=== PATIENT | female | born 1945 ===

== ENCOUNTER 2017-08-22 11:12 | Inpatient (IN) | payer MEDICARE ==
[2017-08-22 12:09] LABS: RBC URINE 38 /hpf (0-3); URINE BILIRUBIN NEGATIVE (NEGATIVE); URINE BLOOD 2+ (NEGATIVE); URINE COLOR Yellow (YELLOW); URINE GLUCOSE (UA) 1+ mg/dL (Normal); URINE KETONE TRACE mg/dL (NEGATIVE); URINE LEUKOCYTE ESTERASE TRACE Leu/uL (Negative); URINE PROTEIN 2+ mg/dL (NEGATIVE); URINE UROBILINOGEN NORMAL mg/dL (0.2-1.0); WBC URINE 6 /hpf (0-5)
[2017-08-22 12:10] LABS: EOS # 0.1 K/uL (0.0-0.7); EOS % 0.2 % (0.0-4.0); HEMATOCRIT 38.8 % (34.0-47.0); LYMPH # 1.1 K/uL (1.0-4.3); LYMPH % 4.5 % (20.0-40.0); MEAN CELL VOLUME 80.6 fL (81.0-99.0); MEAN CORPUSCULAR HEMOGLOBIN 26.1 pg (27.0-31.0); MEAN CORPUSCULAR HGB CONC 32.3 g/dL (33.0-37.0); MEAN PLATELET VOLUME 8.2 fL (7.2-11.7); MONO # 1.4 K/uL (0.0-0.8); MONO % 5.6 % (0.0-10.0); NRBC % 0.1 % (0.0-2.0); PLATELET COUNT 282 K/uL (130-400); RED CELL DISTRIBUTION WIDTH 13.2 % (11.5-14.5); WHITE BLOOD COUNT 24.3 K/uL (4.8-10.8)
[2017-08-22 12:23] LABS: CHLORIDE 100 mmol/L (98-107); SODIUM 131 mmol/L (132-148)
[2017-08-22 12:24] LABS: POTASSIUM 4.3 mmol/L (3.6-5.2)
[2017-08-22 12:25] LABS: GFR AFRICAN-AMERICAN > 60
[2017-08-22 12:26] LABS: ALKALINE PHOSPHATASE 81 U/L (38-126); ALT/SGPT 33 U/L (9-52); AST/SGOT 48 U/L (14-36); BILIRUBIN,TOTAL 0.8 mg/dL (0.2-1.3); BLOOD UREA NITROGEN 19 mg/dL (7-17); CALCIUM 8.6 mg/dl (8.6-10.4); CARBON DIOXIDE 19 mmol/L (22-30); GLUCOSE,RANDOM 165 mg/dL (65-105); TOTAL PROTEIN 8.5 g/dL (6.3-8.3)
[2017-08-22 12:28] LABS: NEUTROPHIL 80 % (50-75); TOTAL CELLS COUNTED 100
--- NOTE | 2017-08-22 12:40 | US ---
HISTORY: Pain ruq COMPARISON: None. TECHNIQUE: Grayscale imaging was performed. FINDINGS: LIVER: Measures 15.2 cm in length. There is diffuse increased echogenicity of the liver parenchyma. No mass. No intrahepatic bile duct dilatation. GALLBLADDER: There are multiple gallstones. No wall thickening or pericholecystic fluid. The sonographic Nelson's sign is negative. COMMON BILE DUCT: Measures 6.0 mm. No stones. No dilatation. PANCREAS: Unremarkable as visualized. No mass. No ductal dilatation. RIGHT KIDNEY: Measures 9.5 cm in length. Normal echogenicity. No calculus, mass, or hydronephrosis. AORTA: No aneurysmal dilatation. IVC: Unremarkable. OTHER FINDINGS: None . IMPRESSION: Cholelithiasis. Diffuse increased echogenicity in the liver may reflect hepatic steatosis however parenchymal infectious/ inflammatory etiologies cannot be entirely excluded. Clinical and laboratory correlation is advised.
--- NOTE | 2017-08-22 12:50 | C.PDOC ---
History Of Present Illness 72 y/o female sent by PMD Dr. Jose Dugan for evaluation of right sided abdominal pain that started yesterday, associated with nausea and multiple episodes of vomiting. Patient denies fever, cough, diarrhea, chest pain, SOB, dysuria, or hematuria. Patient denies prior episodes of this type of pain. She admits symptoms started after she had a meal. Time Seen by Provider: 08/22/17 11:30 Chief Complaint (Nursing): Abdominal Pain History Per: Patient History/Exam Limitations: no limitations Onset/Duration Of Symptoms: Days Current Symptoms Are (Timing): Still Present Severity: Mild Location Of Pain/Discomfort: RUQ, Periumbilical (right) Radiation Of Pain To:: None Quality Of Discomfort: "Pain" Associated Symptoms: Nausea, Vomiting. denies: Fever, Chills, Diarrhea, Urinary Symptoms Recent travel outside of the [place]: No Abnormal Vaginal Bleeding: No Past Medical History Reviewed: Historical Data, Nursing Documentation, Vital Signs Vital Signs: Last Vital Signs Temp 98.4 F 08/22/17 16:45 Pulse 73 08/22/17 16:45 Resp 19 08/22/17 16:45 BP 96/61 L 08/22/17 16:45 Pulse Ox 96 08/22/17 16:45 - Medical History PMH: Diabetes, HTN, Hypercholesterolemia, Osteoporosis Family History: States: No Known Family Hx - Social History Hx Tobacco Use: No Hx Alcohol Use: No Hx Substance Use: No - Immunization History Hx Tetanus Toxoid Vaccination: No Hx Influenza Vaccination: Yes Hx Pneumococcal Vaccination: No Review Of Systems Except As Marked, All Systems Reviewed And Found Negative. Constitutional: Negative for: Fever, Chills Cardiovascular: Negative for: Chest Pain Respiratory: Negative for: Cough, Shortness of Breath Gastrointestinal: Positive for: Nausea, Vomiting, Abdominal Pain. Negative for : Diarrhea Musculoskeletal: Negative for: Back Pain Skin: Negative for: Rash Physical Exam - Physical Exam Appears: Well, Non-toxic, No Acute Distress Skin: Normal Color, Warm, Dry Oral Mucosa: Moist Chest: Symmetrical Cardiovascular: Rhythm Regular Respiratory: Normal Breath Sounds, No Rales, No Rhonchi, No Wheezing Gastrointestinal/Abdominal: Bowel Sounds, Soft, Tenderness (RUQ, right periumbilical TTP), No Guarding, No Rebound, Other (obese; (-) McBurney's) Back: Normal Inspection, No CVA Tenderness Extremity: Normal ROM Neurological/Psych: Oriented x3 ED Course And Treatment - Laboratory Results Result Diagrams: 08/22/17 11:59 08/22/17 11:59 ECG: Interpreted By Me, Viewed By Me (NSR 71 bpm, normal axis, T wave inversion aVL, V4-V5, no acute ST changes) ECG Rhythm: Sinus Rhythm ECG Interpretation: Abnormal O2 Sat by Pulse Oximetry: 98 (RA) Pulse Ox Interpretation: Normal - CT Scan/US US RUQ Other Rad Studies (CT/US): Read By Radiologist, Radiology Report Reviewed CT/US Interpretation: IMPRESSION: Cholelithiasis. Diffuse increased echogenicity in the liver may reflect hepatic steatosis however parenchymal infectious/ inflammatory etiologies cannot be entirely excluded. Clinical and laboratory correlation is advised. CT SCAN ABD/PELVIS Other Rad Studies (CT/US): Read By Radiologist, Radiology Report Reviewed CT/US Interpretation: Accession No. : [id number]. Patient Name / ID : TAMI SANCHEZ / [id number]. Exam Date : 08/22/2017 13:27:15 ( Approved ). Study Comment : Sex / Age : F / [id number]. Creator : Minda Berman. Dictator : Vladimir Reed MD. Linotype Machinist : Law Instructor : Vladimir Reed MD. Approver2 : Report Date : 08/22/2017 13:36:23. My Comment : . PROCEDURE: CT Abdomen and Pelvis without intravenous contrast. HISTORY: right periumbilical pain, leukocytosis. COMPARISON: Limited abdomen ultrasound exam 08/22/2017. TECHNIQUE: Helical CT of the abdomen and pelvis was performed without oral or intravenous contrast as per referring physician request. Contrast Dose: None. Radiation dose: Total exam DLP = 658.81 mGy-cm. This CT exam was performed using one or more of the following dose reduction techniques : Automated exposure control, adjustment of the mA and/or kV according to patient size, and/or use of iterative reconstruction technique. FINDINGS: LOWER THORAX: Limited nodular atelectasis appreciate the medial right lower lobe extending inferomedially starting below the level of the right hilum and extending medially towards the right paraspinal soft tissues. This appears more sheet like than a nodular lesion. Consider follow-up chest CT. LIVER: Unremarkable. No gross lesion or ductal dilatation. GALLBLADDER AND BILE DUCTS : Cholelithiasis seen distended gallbladder with mild pericholecystic reaction but no definite mural thickening appreciable. Findings suspicious for cholecystitis nevertheless. PANCREAS: Unremarkable. No gross lesion or ductal dilatation. SPLEEN: Unremarkable. ADRENALS: Unremarkable. No mass. KIDNEYS AND URETERS: Unremarkable. No hydronephrosis. No solid mass. VASCULATURE: Unremarkable. No aortic aneurysm. BOWEL: Unremarkable. No obstruction. No gross mural thickening. APPENDIX: Unremarkable. Normal appendix. PERITONEUM: Unremarkable. No free fluid. No free air. LYMPH NODES: Unremarkable. No enlarged lymph nodes. BLADDER: Unremarkable. REPRODUCTIVE: Unremarkable. BONES: No acute fracture. OTHER FINDINGS: None. IMPRESSION: 1. Gallbladder findings suspicious for cholecystitis however the visualize, does not appear distended. Reactive changes in the local pericholecystic fat are seen in this exam and not clearly identifiable in preliminary limited abdomen ultrasound exam. Further clinical correlation is advised. Pancreas appears unremarkable as well as common bile duct. No choledocholithiasis. 2. No additional potential acute findings however lack of intravenous and oral contrast agents limits the overall interpretation. Progress Note: Blood work, UA, RUQ US ordered and reviewed. US shows gallstones without evidence of cholecystitis. Patient has significant white count and pain in RUQ/R periumbilical area, CT scan ordered to r/o appendicitis. CT scan and clinical presentation concerning for cholecystitis - IV zosyn ordered and will admit patient. 2:35PM- Discussed patient with surgical pathologist, who will discuss patient with Dr. Baron (currently in OR ). - Physician Consult Information Physician Contacted: Tomas Bennett Outcome Of Conversation: Dr. Joey Bennett in ED, knows patient and states he is covering for Jovani Dugan - will admit patient to his service. Medical Decision Making Medical Decision Making: differential diagnoses considered: cholecystitis, cholangitis, choledolithiasis , appendicitis, colitis, renal colic, pyelonephritis, ischemic bowel Disposition - Disposition Disposition: HOSPITALIZED Disposition Time: 14:30 Condition: STABLE - Clinical Impression Clinical Impression: Leukocytosis, Cholecystitis - Violaibe Statement The provider has reviewed the documentation as recorded by the Violaibyasir Willson All medical record entries made by the Violaibyasir were at my direction and personally dictated by me. I have reviewed the chart and agree that the record accurately reflects my personal performance of the history, physical exam, medical decision making, and the department course for this patient. I have also personally directed, reviewed, and agree with the discharge instructions and disposition. Decision To Admit - Pt Status Changed To: Hospital Disposition Of: Inpatient - Admit Certification Admit to Inpatient:: After my assessment, the patient will require hospitalization for at least two midnights. This is because of the severity of symptoms shown, intensity of services needed, and/or the medical risk in this patient being treated as an outpatient. - InPatient: Physician Admission Certification:: see notes - . Bed Request Type: Regular Admitting Physician: Tomas Bennett Patient Diagnosis: Leukocytosis, Cholecystitis
--- NOTE | 2017-08-22 14:16 | CT ---
PROCEDURE: CT Abdomen and Pelvis without intravenous contrast HISTORY: right periumbilical pain, leukocytosis COMPARISON: Limited abdomen ultrasound exam 08/22/2017. TECHNIQUE: Helical CT of the abdomen and pelvis was performed without oral or intravenous contrast as per referring physician request. Contrast Dose: None Radiation dose: Total exam DLP = 658.81 mGy-cm. This CT exam was performed using one or more of the following dose reduction techniques: Automated exposure control, adjustment of the mA and/or kV according to patient size, and/or use of iterative reconstruction technique. FINDINGS: LOWER THORAX: Limited nodular atelectasis appreciate the medial right lower lobe extending inferomedially starting below the level of the right hilum and extending medially towards the right paraspinal soft tissues. This appears more sheet like than a nodular lesion. Consider follow-up chest CT. LIVER: Unremarkable. No gross lesion or ductal dilatation. GALLBLADDER AND BILE DUCTS: Cholelithiasis seen distended gallbladder with mild pericholecystic reaction but no definite mural thickening appreciable. Findings suspicious for cholecystitis nevertheless. PANCREAS: Unremarkable. No gross lesion or ductal dilatation. SPLEEN: Unremarkable. ADRENALS: Unremarkable. No mass. KIDNEYS AND URETERS: Unremarkable. No hydronephrosis. No solid mass. VASCULATURE: Unremarkable. No aortic aneurysm. BOWEL: Unremarkable. No obstruction. No gross mural thickening. APPENDIX: Unremarkable. Normal appendix. PERITONEUM: Unremarkable. No free fluid. No free air. LYMPH NODES: Unremarkable. No enlarged lymph nodes. BLADDER: Unremarkable. REPRODUCTIVE: Unremarkable. BONES: No acute fracture. OTHER FINDINGS: None. IMPRESSION: 1. Gallbladder findings suspicious for cholecystitis however the visualize, does not appear distended. Reactive changes in the local pericholecystic fat are seen in this exam and not clearly identifiable in preliminary limited abdomen ultrasound exam. Further clinical correlation is advised. Pancreas appears unremarkable as well as common bile duct. No choledocholithiasis. 2. No additional potential acute findings however lack of intravenous and oral contrast agents limits the overall interpretation.
[2017-08-22] MEDS ORDERED: Piperacill/Tazo 3.375gm in Dex 3.375 GM/50 ML BAG IVPB STA (14:21)
[2017-08-22 15:41] LABS: INR 1.1
[2017-08-22] MEDS ORDERED: HYDROmorphone 0.5 mg/0.5 ml ISec IVP PRN (17:24)
[2017-08-22] MEDS ORDERED: Piperacillin/Tazobact 3.375 GM in Sodium Chloride 100 ML IVPB SCH (18:00)
--- NOTE | 2017-08-22 18:01 | CP.PCM.CON ---
<Anthony Estes - Last Filed: 08/22/17 17:58> History of Present Illness - History of Present Illness History of Present Illness: General Surgery Consult Re: RUQ abd pain HPI: 72F sent to ED by PMD for evaluation of RUQ abd pain that began yesterday after a meal of fried chicken and deng. She has never had this pain before. Reports nausea and multiple episodes of emesis of food and yellow liquid, no blood. Denies F/C, chest pain, SOB, dysuria, or hematuria, diarrhea, melena, hematochezia. PMH: DM, HTN, HLD, osteoarthritis PSH: cataract SH: Occasional EtOH, no tobacco or street drugs All: NKDA Meds: See MAR Review of Systems - Review of Systems All systems: reviewed and no additional remarkable complaints except (as per HPI ) Past Patient History - Past Social History Smoking Status: Never Smoked - CARDIAC Hx Hypercholesterolemia: Yes Hx Hypertension: Yes - ENDOCRINE/METABOLIC Hx Endocrine Disorders: Yes Hx Diabetes Mellitus Type 2: Yes - MUSCULOSKELETAL/RHEUMATOLOGICAL Hx Osteoporosis: Yes - PSYCHIATRIC Hx Substance Use: No - SURGICAL HISTORY Hx Surgeries: No Meds Allergies/Adverse Reactions: Allergies Allergy/AdvReac Type Severity Reaction Status Date / Time cheese AdvReac Intermediate PAIN Verified 08/22/17 11:21 - Medications Medications: Current Medications Hydromorphone HCl (Dilaudid) 0.5 mg IVP Q4H PRN PRN Reason: Pain, moderate (4-7) Piperacillin Sod/Tazobactam Sod (Zosyn 3.375 Gm Iv Premix) 3.375 gm in 50 mls @ 100 mls/hr IVPB Q6 NAMAN Ondansetron HCl (Zofran Inj) 4 mg IVP Q4 PRN PRN Reason: Nausea/Vomiting Physical Exam - Constitutional Appears: Non-toxic, No Acute Distress - Head Exam Head Exam: ATRAUMATIC, NORMOCEPHALIC - Eye Exam Eye Exam: EOMI. absent: Scleral icterus - ENT Exam ENT Exam: Mucous Membranes Moist Additional comments: trachea midline - Respiratory Exam Respiratory Exam: NORMAL BREATHING PATTERN. absent: Respiratory Distress - Cardiovascular Exam Cardiovascular Exam: RRR, +S1, +S2 - GI/Abdominal Exam GI & Abdominal Exam: Guarding (in RUQ), Soft, Tenderness (in RUQ). absent: Distended, Firm, Rebound, Rigid - Rectal Exam Rectal Exam: Deferred - Extremities Exam Extremities exam: Negative for: calf tenderness, pedal edema - Back Exam Back exam: absent: CVA tenderness (L), CVA tenderness (R) - Neurological Exam Neurological exam: Alert, Oriented x3 - Psychiatric Exam Psychiatric exam: Normal Affect, Normal Mood - Skin Skin Exam: Dry, Warm Results - Vital Signs Recent Vital Signs: Last Vital Signs Temp 99.3 F 08/22/17 17:44 Pulse 74 08/22/17 17:44 Resp 20 08/22/17 17:44 BP 103/66 08/22/17 17:44 Pulse Ox 96 08/22/17 17:44 - Labs Result Diagrams: 08/22/17 11:59 08/22/17 11:59 Labs: Laboratory Results - last 24 hr 08/22/17 08/22/17 08/22/17 11:59 11:59 11:59 WBC 24.3 H RBC 4.81 Hgb 12.5 Hct 38.8 MCV 80.6 L MCH 26.1 L MCHC 32.3 L RDW 13.2 Plt Count 282 MPV 8.2 Neut % (Auto) 89.7 H Lymph % (Auto) 4.5 L [place] % (Auto) 5.6 Eos % (Auto) 0.2 Baso % (Auto) 0.0 Neut # 21.8 H Lymph # 1.1 [place] # 1.4 H Eos # 0.1 Baso # 0.0 Neutrophils % (Manual) 80 H Band Neutrophils % 9 H Lymphocytes % (Manual) 3 L Monocytes % (Manual) 8 Platelet Estimate Normal RBC Morphology Normal PT INR APTT Sodium 131 L Potassium 4.3 Chloride 100 Carbon Dioxide 19 L Anion Gap 16 BUN 19 H Creatinine 0.5 L Est GFR ( Amer) > 60 Est GFR (Non-Af Amer) > 60 Random Glucose 165 H Calcium 8.6 Total Bilirubin 0.8 AST 48 H ALT 33 Alkaline Phosphatase 81 Total Protein 8.5 H Albumin 4.3 Globulin 4.2 H Albumin/Globulin Ratio 1.0 Lipase 130 Urine Color Yellow Urine Clarity Clear Urine pH 7.0 Ur Specific [place] 1.025 Urine Protein 2+ H Urine Glucose (UA) 1+ Urine Ketones Trace Urine Blood 2+ H Urine Nitrate Negative Urine Bilirubin Negative Urine Urobilinogen Normal Ur Leukocyte Esterase Trace Urine WBC (Auto) 6 H Urine RBC (Auto) 38 H Ur Squamous Epith Cells 1 Blood Type Antibody Screen 08/22/17 08/22/17 14:53 16:31 WBC RBC Hgb Hct MCV MCH MCHC RDW Plt Count MPV Neut % (Auto) Lymph % (Auto) [place] % (Auto) Eos % (Auto) Baso % (Auto) Neut # Lymph # [place] # Eos # Baso # Neutrophils % (Manual) Band Neutrophils % Lymphocytes % (Manual) Monocytes % (Manual) Platelet Estimate RBC Morphology PT 11.8 INR 1.1 APTT 27 Sodium Potassium Chloride Carbon Dioxide Anion Gap BUN Creatinine Est GFR ( Amer) Est GFR (Non-Af Amer) Random Glucose Calcium Total Bilirubin AST ALT Alkaline Phosphatase Total Protein Albumin Globulin Albumin/Globulin Ratio Lipase Urine Color Urine Clarity Urine pH Ur Specific [place] Urine Protein Urine Glucose (UA) Urine Ketones Urine Blood Urine Nitrate Urine Bilirubin Urine Urobilinogen Ur Leukocyte Esterase Urine WBC (Auto) Urine RBC (Auto) Ur Squamous Epith Cells Blood Type A POSITIVE Antibody Screen Negative - Imaging and Cardiology CT scan - abdomen Status: Image reviewed by me, Report reviewed by me US - abdomen Status: Image reviewed by me, Report reviewed by me Assessment & Plan - Assessment and Plan (Free Text) Assessment: 72F with acute cholecystitis Plan: Needs Medicine clearance for surgery tomorrow CBC tonight OR likely in AM IV Abx IVF Zofran Pain control D/W Dr. Baron <Quentin Baron - Last Filed: 08/23/17 20:37> Meds - Medications Medications: Current Medications Hydromorphone HCl (Dilaudid) 0.5 mg IVP Q4H PRN PRN Reason: Pain, severe (8-10) Last Admin: 08/23/17 17:16 Dose: 0.5 mg Piperacillin Sod/Tazobactam Sod (Zosyn 3.375 Gm Iv Premix) 3.375 gm in 50 mls @ 100 mls/hr IVPB Q6 NAMAN Last Admin: 08/23/17 17:18 Dose: 100 mls/hr Lactated Ringer's (Lactated Ringer's) 1,000 mls @ 125 mls/hr IV .Q8H NAMAN Last Admin: 08/23/17 15:53 Dose: 125 mls/hr Insulin Aspart (Novolog) 0 unit SC ACHS [facility] PRN Reason: Protocol Last Admin: 08/23/17 17:17 Dose: 3 unit Ondansetron HCl (Zofran Inj) 4 mg IVP Q4 PRN PRN Reason: Nausea/Vomiting Oxycodone/Acetaminophen (Percocet 5/325 Mg Tab) 1 tab PO Q4H PRN PRN Reason: Pain, moderate (4-7) Stop: 08/26/17 14:23 Pantoprazole Sodium (Protonix Inj) 40 mg IVP DAILY [facility] Last Admin: 08/23/17 10:03 Dose: 40 mg Pneumococcal Polyvalent Vaccine (Pneumovax 23 Vaccine) 0.5 ml IM .ONCE ONE Stop: 08/25/17 10:01 Results - Vital Signs Recent Vital Signs: Last Vital Signs Temp 98.4 F 08/23/17 15:17 Pulse 72 08/23/17 17:08 Resp 15 08/23/17 15:17 BP 134/62 08/23/17 17:08 Pulse Ox 99 08/23/17 15:17 - Labs Result Diagrams: 08/23/17 07:38 08/23/17 07:38 Labs: Laboratory Results - last 24 hr 08/22/17 08/23/17 08/23/17 20:52 07:38 07:38 WBC 17.6 H RBC 4.29 Hgb 11.4 Hct 34.0 MCV 79.2 L MCH 26.5 L MCHC 33.4 RDW 13.1 Plt Count 259 MPV 8.4 Neut % (Auto) 82.4 H Lymph % (Auto) 9.8 L [place] % (Auto) 7.4 Eos % (Auto) 0.0 Baso % (Auto) 0.4 Neut # 14.5 H Lymph # 1.7 [place] # 1.3 H Eos # 0.0 Baso # 0.1 Neutrophils % (Manual) 83 H Band Neutrophils % 1 Lymphocytes % (Manual) 10 L Monocytes % (Manual) 6 Platelet Estimate Normal RBC Morphology Normal Sodium 135 Potassium 3.5 L Chloride 100 Carbon Dioxide 25 Anion Gap 14 BUN 23 H Creatinine 0.8 Est GFR ( Amer) > 60 Est GFR (Non-Af Amer) > 60 POC Glucose (mg/dL) 148 H Random Glucose 148 H Calcium 7.9 L Total Bilirubin 0.9 AST 20 ALT 40 Alkaline Phosphatase 64 Total Protein 7.1 Albumin 3.5 Globulin 3.6 Albumin/Globulin Ratio 1.0 08/23/17 08/23/17 08/23/17 08:39 14:23 16:36 WBC RBC Hgb Hct MCV MCH MCHC RDW Plt Count MPV Neut % (Auto) Lymph % (Auto) [place] % (Auto) Eos % (Auto) Baso % (Auto) Neut # Lymph # [place] # Eos # Baso # Neutrophils % (Manual) Band Neutrophils % Lymphocytes % (Manual) Monocytes % (Manual) Platelet Estimate RBC Morphology Sodium Potassium Chloride Carbon Dioxide Anion Gap BUN Creatinine Est GFR ( Amer) Est GFR (Non-Af Amer) POC Glucose (mg/dL) 176 H 176 H 251 H Random Glucose Calcium Total Bilirubin AST ALT Alkaline Phosphatase Total Protein Albumin Globulin Albumin/Globulin Ratio Attending/Attestation - Attestation I have personally seen and examined this patient.: Yes I have fully participated in the care of the patient.: Yes I have reviewed all pertinent clinical information: Yes Notes (Text): Pt was seen and examined at bedside Agree with above note and assessment Pt with Cholecystitis with severe leucocytosis with Abdominal pain Abdominal RUQ tenderness present Labs and radiology reviewed. NPO, IVF DVT prophylaxis C/W IV antibiotics OR for Lap Cholecystectomy present Consent Medical clearance Plan d.w pt in detail. Risk and benefit explained in detail
[2017-08-22] MEDS: Piperacill/Tazo 3.375gm in Dex 3.375 GM/50 ML BAG IVPB SCH (18:10)
--- NOTE | 2017-08-22 19:09 | RAD ---
HISTORY: pre op COMPARISON: No prior. FINDINGS: LUNGS: No active pulmonary disease. PLEURA: No significant pleural effusion identified, no pneumothorax apparent. CARDIOVASCULAR: Normal. OSSEOUS STRUCTURES: No significant abnormalities. VISUALIZED UPPER ABDOMEN: Normal. OTHER FINDINGS: None. IMPRESSION: No active disease.
[2017-08-22 20:00] LABS: HEMATOCRIT 35.2 % (34.0-47.0); MEAN CELL VOLUME 79.2 fL (81.0-99.0); MEAN CORPUSCULAR HEMOGLOBIN 26.2 pg (27.0-31.0); MEAN CORPUSCULAR HGB CONC 33.1 g/dL (33.0-37.0); MEAN PLATELET VOLUME 8.3 fL (7.2-11.7); RED CELL DISTRIBUTION WIDTH 13.4 % (11.5-14.5); WHITE BLOOD COUNT 20.7 K/uL (4.8-10.8)
[2017-08-22] MEDS ORDERED: Dextrose 5%/0.45% NS 1,000 ML IV SCH (20:00)
--- NOTE | 2017-08-22 21:08 | CP.PCM.HP ---
History of Present Illness - History of Present Illness History of Present Illness: A 72-year-old female with PMHDM, HTN, hypercholesterolemia and osteoporosis presents to the ER for evaluation of abdominal pain. C/Oabdominal pain for 1 day. Acute in onset, progressive, started after patient had a heavy fatty meal of fried chicken and cautery, in the right upper quadrant, intensity of 7/10, nonradiating, aggravated by coughing, partly relieved by pain to her medications. C/Ovomiting for 1 day. 3-4 episodes of nonbilious, nonbloody, nonprojectile vomitus containing only food particles. C/Onausea for 1 day. Bowel bladder disturbance, no C/Ofever, yellow discoloration of urine sclera, abdominal distention, chest pain. Present on Admission - Present on Admission Any Indicators Present on Admission: No Past Patient History - Past Medical History & Family History Past Medical History?: Yes - Past Social History Smoking Status: Never Smoked - CARDIAC Hx Hypercholesterolemia: Yes Hx Hypertension: Yes - HEENT Hx Cataracts: Yes (cataract Sx OU 2014) - ENDOCRINE/METABOLIC Hx Endocrine Disorders: Yes Hx Diabetes Mellitus Type 2: Yes - MUSCULOSKELETAL/RHEUMATOLOGICAL Hx Osteoporosis: Yes - PSYCHIATRIC Hx Substance Use: No - SURGICAL HISTORY Hx Surgeries: No - ANESTHESIA Hx Anesthesia: Yes Hx Anesthesia Reactions: No Hx Malignant Hyperthermia: No Has any member of the family had a problem w/ anesthesia?: No Meds Home Medications: Home Medication List Medication Instructions Recorded Confirmed Type Amoxicillin/Clavulanate [Augmentin 1 tab PO BID #10 tab 08/26/17 Rx 875 MG-125 MG] oxyCODONE/Acetaminophen [Percocet 1 tab PO Q4H PRN #15 tab 08/26/17 Rx 5/325 mg Tab] Allergies/Adverse Reactions: Allergies Allergy/AdvReac Type Severity Reaction Status Date / Time cheese AdvReac Intermediate PAIN Verified 08/22/17 11:21 Results - Vital Signs Recent Vital Signs: Last Vital Signs Temp 99.3 F 08/22/17 17:44 Pulse 74 08/22/17 17:44 Resp 20 08/22/17 17:44 BP 103/66 08/22/17 17:44 Pulse Ox 96 08/22/17 17:44 - Labs Result Diagrams: 08/26/17 07:30 08/26/17 07:30 Labs: Laboratory Results - last 24 hr 08/22/17 08/22/17 08/22/17 11:59 11:59 11:59 WBC 24.3 H RBC 4.81 Hgb 12.5 Hct 38.8 MCV 80.6 L MCH 26.1 L MCHC 32.3 L RDW 13.2 Plt Count 282 MPV 8.2 Neut % (Auto) 89.7 H Lymph % (Auto) 4.5 L [place] % (Auto) 5.6 Eos % (Auto) 0.2 Baso % (Auto) 0.0 Neut # 21.8 H Lymph # 1.1 [place] # 1.4 H Eos # 0.1 Baso # 0.0 Neutrophils % (Manual) 80 H Band Neutrophils % 9 H Lymphocytes % (Manual) 3 L Monocytes % (Manual) 8 Platelet Estimate Normal RBC Morphology Normal PT INR APTT Sodium 131 L Potassium 4.3 Chloride 100 Carbon Dioxide 19 L Anion Gap 16 BUN 19 H Creatinine 0.5 L Est GFR ( Amer) > 60 Est GFR (Non-Af Amer) > 60 POC Glucose (mg/dL) Random Glucose 165 H Calcium 8.6 Total Bilirubin 0.8 AST 48 H ALT 33 Alkaline Phosphatase 81 Total Protein 8.5 H Albumin 4.3 Globulin 4.2 H Albumin/Globulin Ratio 1.0 Lipase 130 Urine Color Yellow Urine Clarity Clear Urine pH 7.0 Ur Specific [place] 1.025 Urine Protein 2+ H Urine Glucose (UA) 1+ Urine Ketones Trace Urine Blood 2+ H Urine Nitrate Negative Urine Bilirubin Negative Urine Urobilinogen Normal Ur Leukocyte Esterase Trace Urine WBC (Auto) 6 H Urine RBC (Auto) 38 H Ur Squamous Epith Cells 1 Blood Type Antibody Screen 08/22/17 08/22/17 08/22/17 14:53 16:31 19:56 WBC 20.7 H RBC 4.44 Hgb 11.6 Hct 35.2 MCV 79.2 L MCH 26.2 L MCHC 33.1 RDW 13.4 Plt Count 264 MPV 8.3 Neut % (Auto) Lymph % (Auto) [place] % (Auto) Eos % (Auto) Baso % (Auto) Neut # Lymph # [place] # Eos # Baso # Neutrophils % (Manual) Band Neutrophils % Lymphocytes % (Manual) Monocytes % (Manual) Platelet Estimate RBC Morphology PT 11.8 INR 1.1 APTT 27 Sodium Potassium Chloride Carbon Dioxide Anion Gap BUN Creatinine Est GFR ( Amer) Est GFR (Non-Af Amer) POC Glucose (mg/dL) Random Glucose Calcium Total Bilirubin AST ALT Alkaline Phosphatase Total Protein Albumin Globulin Albumin/Globulin Ratio Lipase Urine Color Urine Clarity Urine pH Ur Specific [place] Urine Protein Urine Glucose (UA) Urine Ketones Urine Blood Urine Nitrate Urine Bilirubin Urine Urobilinogen Ur Leukocyte Esterase Urine WBC (Auto) Urine RBC (Auto) Ur Squamous Epith Cells Blood Type A POSITIVE Antibody Screen Negative 08/22/17 20:52 WBC RBC Hgb Hct MCV MCH MCHC RDW Plt Count MPV Neut % (Auto) Lymph % (Auto) [place] % (Auto) Eos % (Auto) Baso % (Auto) Neut # Lymph # [place] # Eos # Baso # Neutrophils % (Manual) Band Neutrophils % Lymphocytes % (Manual) Monocytes % (Manual) Platelet Estimate RBC Morphology PT INR APTT Sodium Potassium Chloride Carbon Dioxide Anion Gap BUN Creatinine Est GFR ( Amer) Est GFR (Non-Af Amer) POC Glucose (mg/dL) 148 H Random Glucose Calcium Total Bilirubin AST ALT Alkaline Phosphatase Total Protein Albumin Globulin Albumin/Globulin Ratio Lipase Urine Color Urine Clarity Urine pH Ur Specific [place] Urine Protein Urine Glucose (UA) Urine Ketones Urine Blood Urine Nitrate Urine Bilirubin Urine Urobilinogen Ur Leukocyte Esterase Urine WBC (Auto) Urine RBC (Auto) Ur Squamous Epith Cells Blood Type Antibody Screen
[2017-08-22] MEDS: (Novolog) Insulin Aspart, Recombinant 100 u/ml 10 ml vial SC SCH (21:32)
[2017-08-23] MEDS: Piperacill/Tazo 3.375gm in Dex 3.375 GM/50 ML BAG IVPB SCH ×4 (00:14→17:18)
[2017-08-23] MEDS: (Novolog) Insulin Aspart, Recombinant 100 u/ml 10 ml vial SC SCH ×4 (07:59→21:59)
[2017-08-23 08:01] LABS: BASO # 0.1 K/uL (0.0-0.2); BASO % 0.4 % (0.0-2.0); LYMPH # 1.7 K/uL (1.0-4.3); LYMPH % 9.8 % (20.0-40.0); MEAN CELL VOLUME 79.2 fL (81.0-99.0); MEAN CORPUSCULAR HEMOGLOBIN 26.5 pg (27.0-31.0); MEAN CORPUSCULAR HGB CONC 33.4 g/dL (33.0-37.0); MEAN PLATELET VOLUME 8.4 fL (7.2-11.7); MONO # 1.3 K/uL (0.0-0.8); MONO % 7.4 % (0.0-10.0); PLATELET COUNT 259 K/uL (130-400); RED CELL DISTRIBUTION WIDTH 13.1 % (11.5-14.5); WHITE BLOOD COUNT 17.6 K/uL (4.8-10.8)
[2017-08-23 08:05] LABS: CHLORIDE 100 mmol/L (98-107); POTASSIUM 3.5 mmol/L (3.6-5.2); SODIUM 135 mmol/L (132-148)
[2017-08-23 08:07] LABS: BILIRUBIN,TOTAL 0.9 mg/dL (0.2-1.3); GFR AFRICAN-AMERICAN > 60
[2017-08-23 08:08] LABS: ALKALINE PHOSPHATASE 64 U/L (38-126); ALT/SGPT 40 U/L (9-52); AST/SGOT 20 U/L (14-36); BLOOD UREA NITROGEN 23 mg/dL (7-17); CARBON DIOXIDE 25 mmol/L (22-30); GLUCOSE,RANDOM 148 mg/dL (65-105); TOTAL PROTEIN 7.1 g/dL (6.3-8.3)
[2017-08-23 08:09] LABS: CALCIUM 7.9 mg/dl (8.6-10.4)
[2017-08-23 09:51] LABS: NEUTROPHIL 83 % (50-75); TOTAL CELLS COUNTED 100
[2017-08-23] MEDS ORDERED: Potassium Chloride 40 MEQ in Dextrose 5%/0.45% NS 1,000 ML IV SCH (10:32)
[2017-08-23] MEDS: Bupivacaine-Epi 0.25%-1:200,000 PF Inj ONE ×2 (11:08→12:25)
[2017-08-23] MEDS ORDERED: Lactated Ringer's 1,000 ML IV ONE ×2 (11:09)
[2017-08-23] MEDS: Lidocaine 1% Inj (20ml) ONE ×2 (11:09→12:25)
[2017-08-23] MEDS ORDERED: Midazolam 2 MG/2 ML VIAL ONE (11:41)
[2017-08-23] MEDS ORDERED: Rocuronium 10 mg/ml (5 ml) ONE (11:42)
[2017-08-23] MEDS ORDERED: Succinylcholine Chloride 20 mg/ml Syr (5 ml) IV ONE (11:42)
[2017-08-23] MEDS ORDERED: Propofol 10 mg/ml Inj (20 ML) ONE (11:43)
[2017-08-23] MEDS ORDERED: Neostigmine Methylsulfate 3mg/3ml Syringe IV ONE (13:40)
--- NOTE | 2017-08-23 14:18 | PCM.SURG1 ---
Surgeon's Initial Post Op Note - Surgeon's Notes Surgeon: Dr. Baron Mica Washer Gluer: Glory PGY1 Type of Anesthesia: General Endo Anesthesia Administered By: Dr. Good Pre-Operative Diagnosis: Acute cholecystitis Operative Findings: Acute cholecystitis, perihepatic abscess, extensive adhesions (see operative report) Post-Operative Diagnosis: Acute cholecystitis with perihepatic abscess Operation Performed: Laparoscopic cholecystectomy with gallbladder aspiration, drainage of perihepatic abscess, and extensive lysis of adhesions Specimen/Specimens Removed: gallbladder, gallbladder fluid, perihepatic abscess fluid with cuture Estimated Blood Loss: EBL {In ML}: 50 Blood Products Given: N/A Drains Used: Ashish (19 fr) Post-Op Condition: Good Date of Surgery/Procedure: 08/23/17 Time of Surgery/Procedure: 11:35
[2017-08-23] MEDS ORDERED: Dexamethasone 4 mg/1 ml IVP PRN (14:19)
[2017-08-23] MEDS ORDERED: HYDROmorphone 0.5 mg/0.5 ml ISec IVP PRN (14:19)
[2017-08-23] MEDS: Lactated Ringer's 1,000 ML IV SCH ×2 (15:53→22:00)
--- NOTE | 2017-08-23 16:59 | CP.PCM.CON ---
<Ivelisse Bennett - Last Filed: 08/23/17 17:00> History of Present Illness - History of Present Illness History of Present Illness: PGY4 Initial GI Consult Tatum Rowe is a 72F sent to ED by PMD for evaluation of RUQ abd pain. She states that it began yesterday after a meal of fried chicken and deng. She has never had this pain before. Reports nausea and multiple episodes of emesis of food and yellow liquid, no blood. She states that the pain is located in the RUQ and radiated to the back. She states that her pain was at least a 8 out of 10 and describes it as achy. She notes worsening with food and no known alleviating factors. She denies any fever, chills, diaphoresis, diarrhea, melena, hematochezia. An ultrasound revealed cholelithiasis with normal CBD. CT Abd revealed possible cholecystic changes around the GB. She was started on zosyn and kept NPO for Lap Katherine today. PMH: DM, HTN, HLD, osteoarthritis PSH: cataract SH: Occasional EtOH, no tobacco or street drugs Endoscopy: Denies Family hx: denies a family hx of colon Ca ROS: 12 point ROS conducted neg other than above Past Patient History - Past Medical History & Family History Past Medical History?: Yes - Past Social History Smoking Status: Never Smoked - CARDIAC Hx Hypercholesterolemia: Yes Hx Hypertension: Yes - HEENT Hx Cataracts: Yes (cataract Sx OU 2014) - ENDOCRINE/METABOLIC Hx Endocrine Disorders: Yes Hx Diabetes Mellitus Type 2: Yes - MUSCULOSKELETAL/RHEUMATOLOGICAL Hx Osteoporosis: Yes - PSYCHIATRIC Hx Substance Use: No - SURGICAL HISTORY Hx Surgeries: No - ANESTHESIA Hx Anesthesia: Yes Hx Anesthesia Reactions: No Hx Malignant Hyperthermia: No Has any member of the family had a problem w/ anesthesia?: No Meds Allergies/Adverse Reactions: Allergies Allergy/AdvReac Type Severity Reaction Status Date / Time cheese AdvReac Intermediate PAIN Verified 08/22/17 11:21 - Medications Medications: Current Medications Hydromorphone HCl (Dilaudid) 0.5 mg IVP Q4H PRN PRN Reason: Pain, severe (8-10) Piperacillin Sod/Tazobactam Sod (Zosyn 3.375 Gm Iv Premix) 3.375 gm in 50 mls @ 100 mls/hr IVPB Q6 [facility] Last Admin: 11/11/17 11:55 Dose: 50 mls Lactated Ringer's (Lactated Ringer's) 1,000 mls @ 125 mls/hr IV .Q8H [facility] Last Admin: 08/23/17 15:53 Dose: 125 mls/hr Potassium Chloride (Potassium Chloride 20 Meq/100 Ml) 20 meq in 100 mls @ 50 mls/hr IVPB ONCE ONE Stop: 08/23/17 17:07 Last Admin: 08/23/17 15:53 Dose: 50 mls/hr Insulin Aspart (Novolog) 0 unit SC ACHS [facility] PRN Reason: Protocol Last Admin: 08/23/17 14:34 Dose: Not Given Ondansetron HCl (Zofran Inj) 4 mg IVP Q4 PRN PRN Reason: Nausea/Vomiting Oxycodone/Acetaminophen (Percocet 5/325 Mg Tab) 1 tab PO Q4H PRN PRN Reason: Pain, moderate (4-7) Stop: 08/26/17 14:23 Pantoprazole Sodium (Protonix Inj) 40 mg IVP DAILY [facility] Last Admin: 08/23/17 10:03 Dose: 40 mg Pneumococcal Polyvalent Vaccine (Pneumovax 23 Vaccine) 0.5 ml IM .ONCE ONE Stop: 08/25/17 10:01 Physical Exam - Constitutional Appears: Well, No Acute Distress - Head Exam Head Exam: ATRAUMATIC, NORMOCEPHALIC - Eye Exam Eye Exam: Normal appearance - ENT Exam ENT Exam: Mucous Membranes Moist - Respiratory Exam Respiratory Exam: Clear to Auscultation Bilateral, NORMAL BREATHING PATTERN. absent: Rales, Rhonchi, Wheezes, Respiratory Distress - Cardiovascular Exam Cardiovascular Exam: REGULAR RHYTHM, +S1, +S2 - GI/Abdominal Exam GI & Abdominal Exam: Normal Bowel Sounds, Soft, Tenderness (RUQ with + Nelson's) . absent: Distended, Guarding, Rebound, Rigid - Extremities Exam Extremities exam: Negative for: joint swelling, pedal edema - Neurological Exam Neurological exam: Alert, Oriented x3 - Psychiatric Exam Psychiatric exam: Normal Affect, Normal Mood - Skin Skin Exam: Dry, Intact, Normal Color, Warm Results - Vital Signs Recent Vital Signs: Last Vital Signs Temp 98.4 F 08/23/17 15:17 Pulse 71 08/23/17 15:17 Resp 15 08/23/17 15:17 BP 138/59 L 08/23/17 15:17 Pulse Ox 99 08/23/17 15:17 - Labs Result Diagrams: 08/23/17 07:38 08/23/17 07:38 Labs: Laboratory Results - last 24 hr 08/22/17 08/22/17 08/22/17 16:31 19:56 20:52 WBC 20.7 H RBC 4.44 Hgb 11.6 Hct 35.2 MCV 79.2 L MCH 26.2 L MCHC 33.1 RDW 13.4 Plt Count 264 MPV 8.3 Neut % (Auto) Lymph % (Auto) [place] % (Auto) Eos % (Auto) Baso % (Auto) Neut # Lymph # [place] # Eos # Baso # Neutrophils % (Manual) Band Neutrophils % Lymphocytes % (Manual) Monocytes % (Manual) Platelet Estimate RBC Morphology Sodium Potassium Chloride Carbon Dioxide Anion Gap BUN Creatinine Est GFR ( Amer) Est GFR (Non-Af Amer) POC Glucose (mg/dL) 148 H Random Glucose Calcium Total Bilirubin AST ALT Alkaline Phosphatase Total Protein Albumin Globulin Albumin/Globulin Ratio Antibody Screen Negative 08/23/17 08/23/17 08/23/17 07:38 07:38 08:39 WBC 17.6 H RBC 4.29 Hgb 11.4 Hct 34.0 MCV 79.2 L MCH 26.5 L MCHC 33.4 RDW 13.1 Plt Count 259 MPV 8.4 Neut % (Auto) 82.4 H Lymph % (Auto) 9.8 L [place] % (Auto) 7.4 Eos % (Auto) 0.0 Baso % (Auto) 0.4 Neut # 14.5 H Lymph # 1.7 [place] # 1.3 H Eos # 0.0 Baso # 0.1 Neutrophils % (Manual) 83 H Band Neutrophils % 1 Lymphocytes % (Manual) 10 L Monocytes % (Manual) 6 Platelet Estimate Normal RBC Morphology Normal Sodium 135 Potassium 3.5 L Chloride 100 Carbon Dioxide 25 Anion Gap 14 BUN 23 H Creatinine 0.8 Est GFR ( Amer) > 60 Est GFR (Non-Af Amer) > 60 POC Glucose (mg/dL) 176 H Random Glucose 148 H Calcium 7.9 L Total Bilirubin 0.9 AST 20 ALT 40 Alkaline Phosphatase 64 Total Protein 7.1 Albumin 3.5 Globulin 3.6 Albumin/Globulin Ratio 1.0 Antibody Screen 08/23/17 08/23/17 14:23 16:36 WBC RBC Hgb Hct MCV MCH MCHC RDW Plt Count MPV Neut % (Auto) Lymph % (Auto) [place] % (Auto) Eos % (Auto) Baso % (Auto) Neut # Lymph # [place] # Eos # Baso # Neutrophils % (Manual) Band Neutrophils % Lymphocytes % (Manual) Monocytes % (Manual) Platelet Estimate RBC Morphology Sodium Potassium Chloride Carbon Dioxide Anion Gap BUN Creatinine Est GFR ( Amer) Est GFR (Non-Af Amer) POC Glucose (mg/dL) 176 H 251 H Random Glucose Calcium Total Bilirubin AST ALT Alkaline Phosphatase Total Protein Albumin Globulin Albumin/Globulin Ratio Antibody Screen Assessment & Plan - Assessment and Plan (Free Text) Assessment: Tatum Rowe is a 7F w. hx of HTN, HL, Dm who presents to the ED with RUQ pain. Etiology is likely acute cholecystitis Acute Cholecystitis Abd pain likely 2/2 above Obesity Plan: -planned for lap katherine as per surgery -diet as per surgery -No evidence of CBD stone, no need for ERCP -continue abx -continue fluids -recommend oupt colonoscopy for colon ca screening -continue to monitor LFTS D/W Dr. Ramirez <Jonathan Ramirez MD - Last Filed: 08/23/17 19:07> Meds - Medications Medications: Current Medications Hydromorphone HCl (Dilaudid) 0.5 mg IVP Q4H PRN PRN Reason: Pain, severe (8-10) Last Admin: 08/23/17 17:16 Dose: 0.5 mg Piperacillin Sod/Tazobactam Sod (Zosyn 3.375 Gm Iv Premix) 3.375 gm in 50 mls @ 100 mls/hr IVPB Q6 [facility] Last Admin: 08/23/17 17:18 Dose: 100 mls/hr Lactated Ringer's (Lactated Ringer's) 1,000 mls @ 125 mls/hr IV .Q8H [facility] Last Admin: 08/23/17 15:53 Dose: 125 mls/hr Insulin Aspart (Novolog) 0 unit SC ACHS [facility] PRN Reason: Protocol Last Admin: 08/23/17 17:17 Dose: 3 unit Ondansetron HCl (Zofran Inj) 4 mg IVP Q4 PRN PRN Reason: Nausea/Vomiting Oxycodone/Acetaminophen (Percocet 5/325 Mg Tab) 1 tab PO Q4H PRN PRN Reason: Pain, moderate (4-7) Stop: 08/26/17 14:23 Pantoprazole Sodium (Protonix Inj) 40 mg IVP DAILY [facility] Last Admin: 08/23/17 10:03 Dose: 40 mg Pneumococcal Polyvalent Vaccine (Pneumovax 23 Vaccine) 0.5 ml IM .ONCE ONE Stop: 08/25/17 10:01 Results - Vital Signs Recent Vital Signs: Last Vital Signs Temp 98.4 F 08/23/17 15:17 Pulse 72 08/23/17 17:08 Resp 15 08/23/17 15:17 BP 134/62 08/23/17 17:08 Pulse Ox 99 08/23/17 15:17 - Labs Result Diagrams: 08/23/17 07:38 08/23/17 07:38 Labs: Laboratory Results - last 24 hr 08/22/17 08/22/17 08/23/17 19:56 20:52 07:38 WBC 20.7 H 17.6 H RBC 4.44 4.29 Hgb 11.6 11.4 Hct 35.2 34.0 MCV 79.2 L 79.2 L MCH 26.2 L 26.5 L MCHC 33.1 33.4 RDW 13.4 13.1 Plt Count 264 259 MPV 8.3 8.4 Neut % (Auto) 82.4 H Lymph % (Auto) 9.8 L [place] % (Auto) 7.4 Eos % (Auto) 0.0 Baso % (Auto) 0.4 Neut # 14.5 H Lymph # 1.7 [place] # 1.3 H Eos # 0.0 Baso # 0.1 Neutrophils % (Manual) 83 H Band Neutrophils % 1 Lymphocytes % (Manual) 10 L Monocytes % (Manual) 6 Platelet Estimate Normal RBC Morphology Normal Sodium Potassium Chloride Carbon Dioxide Anion Gap BUN Creatinine Est GFR ( Amer) Est GFR (Non-Af Amer) POC Glucose (mg/dL) 148 H Random Glucose Calcium Total Bilirubin AST ALT Alkaline Phosphatase Total Protein Albumin Globulin Albumin/Globulin Ratio 08/23/17 08/23/17 08/23/17 07:38 08:39 14:23 WBC RBC Hgb Hct MCV MCH MCHC RDW Plt Count MPV Neut % (Auto) Lymph % (Auto) [place] % (Auto) Eos % (Auto) Baso % (Auto) Neut # Lymph # [place] # Eos # Baso # Neutrophils % (Manual) Band Neutrophils % Lymphocytes % (Manual) Monocytes % (Manual) Platelet Estimate RBC Morphology Sodium 135 Potassium 3.5 L Chloride 100 Carbon Dioxide 25 Anion Gap 14 BUN 23 H Creatinine 0.8 Est GFR ( Amer) > 60 Est GFR (Non-Af Amer) > 60 POC Glucose (mg/dL) 176 H 176 H Random Glucose 148 H Calcium 7.9 L Total Bilirubin 0.9 AST 20 ALT 40 Alkaline Phosphatase 64 Total Protein 7.1 Albumin 3.5 Globulin 3.6 Albumin/Globulin Ratio 1.0 08/23/17 16:36 WBC RBC Hgb Hct MCV MCH MCHC RDW Plt Count MPV Neut % (Auto) Lymph % (Auto) [place] % (Auto) Eos % (Auto) Baso % (Auto) Neut # Lymph # [place] # Eos # Baso # Neutrophils % (Manual) Band Neutrophils % Lymphocytes % (Manual) Monocytes % (Manual) Platelet Estimate RBC Morphology Sodium Potassium Chloride Carbon Dioxide Anion Gap BUN Creatinine Est GFR ( Amer) Est GFR (Non-Af Amer) POC Glucose (mg/dL) 251 H Random Glucose Calcium Total Bilirubin AST ALT Alkaline Phosphatase Total Protein Albumin Globulin Albumin/Globulin Ratio Attending/Attestation - Attestation I have personally seen and examined this patient.: Yes I have fully participated in the care of the patient.: Yes I have reviewed all pertinent clinical information: Yes Notes (Text): 08/23/17 19:06 72 yr old F admitted with acute cholecystitis with leukocytosis and normal LFT and bile ducts. Patient scheduled for OR today which I agree with. Thank you for letting us participate in the care of your patient
[2017-08-23] MEDS: HYDROmorphone 0.5 mg/0.5 ml ISec IVP PRN (17:16)
--- NOTE | 2017-08-23 18:25 | CP.PCM.PN ---
Subjective - Date & Time of Evaluation Date of Evaluation: 08/23/17 Time of Evaluation: 08:20 - Subjective Subjective: clinically same Objective - Vital Signs/Intake and Output Vital Signs (last 24 hours): Temp Pulse Resp BP Pulse Ox 98.4 F 72 15 134/62 99 08/23/17 15:17 08/23/17 17:08 08/23/17 15:17 08/23/17 17:08 08/23/17 15:17 Intake and Output: 08/23/17 08/23/17 06:59 18:59 Intake Total 480 Output Total 20 Balance 480 -20 - Medications Medications: Current Medications Hydromorphone HCl (Dilaudid) 0.5 mg IVP Q4H PRN PRN Reason: Pain, severe (8-10) Last Admin: 08/23/17 17:16 Dose: 0.5 mg Piperacillin Sod/Tazobactam Sod (Zosyn 3.375 Gm Iv Premix) 3.375 gm in 50 mls @ 100 mls/hr IVPB Q6 [facility] Last Admin: 08/23/17 17:18 Dose: 100 mls/hr Lactated Ringer's (Lactated Ringer's) 1,000 mls @ 125 mls/hr IV .Q8H [facility] Last Admin: 08/23/17 15:53 Dose: 125 mls/hr Insulin Aspart (Novolog) 0 unit SC ACHS [facility] PRN Reason: Protocol Last Admin: 08/23/17 17:17 Dose: 3 unit Ondansetron HCl (Zofran Inj) 4 mg IVP Q4 PRN PRN Reason: Nausea/Vomiting Oxycodone/Acetaminophen (Percocet 5/325 Mg Tab) 1 tab PO Q4H PRN PRN Reason: Pain, moderate (4-7) Stop: 08/26/17 14:23 Pantoprazole Sodium (Protonix Inj) 40 mg IVP DAILY [facility] Last Admin: 08/23/17 10:03 Dose: 40 mg Pneumococcal Polyvalent Vaccine (Pneumovax 23 Vaccine) 0.5 ml IM .ONCE ONE Stop: 08/25/17 10:01 - Labs Labs: 08/23/17 07:38 08/23/17 07:38 PT 11.8 SECONDS (9.7-12.2) 08/22/17 14:53 INR 1.1 08/22/17 14:53 APTT 27 SECONDS (21-34) 08/22/17 14:53 - Constitutional Appears: Well - Head Exam Head Exam: ATRAUMATIC, NORMAL INSPECTION, NORMOCEPHALIC - Eye Exam Eye Exam: EOMI, Normal appearance, PERRL Pupil Exam: NORMAL ACCOMODATION, PERRL - ENT Exam ENT Exam: Mucous Membranes Moist, Normal Exam - Neck Exam Neck Exam: Full ROM, Normal Inspection. absent: Lymphadenopathy - Respiratory Exam Respiratory Exam: Decreased Breath Sounds - Cardiovascular Exam Cardiovascular Exam: REGULAR RHYTHM, +S1, +S2. absent: Murmur - GI/Abdominal Exam GI & Abdominal Exam: Soft, Normal Bowel Sounds. absent: Tenderness - Rectal Exam Rectal Exam: Deferred Assessment and Plan (1) Cholecystitis Status: Acute (2) Leukocytosis Status: Acute (3) Wrist fracture Status: Acute - Assessment and Plan (Free Text) Plan: Patient examined. EKG suggestive nonspecific T-wave abnormality. Ultrasound abdomen suggestive of cholelithiasis without cholecystitis and hepatic steatosis. CT scan abdomen pelvis suggestive of reactive changes in the pericolic fat with the possibility of cholecystitis. Chest x-ray normal. Laboratory investigation showed raised total WBC counts. Significant neutrophilia. Raised AST. Laparoscopic cholecystectomy with gallbladder aspiration, drainage of the perihepatic abscess and extensive lysis of the adhesions done under general anesthesia. Continue piperacillin tazobactam. Hydrate the patient with Ringer lactate. Continue insulin. Continue supportive care.
[2017-08-24] MEDS: Piperacill/Tazo 3.375gm in Dex 3.375 GM/50 ML BAG IVPB SCH ×4 (00:04→18:50)
[2017-08-24 01:00] VITALS: RESP 20
[2017-08-24] MEDS: HYDROmorphone 0.5 mg/0.5 ml ISec IVP PRN (02:54)
--- NOTE | 2017-08-24 02:56 | OP ---
PROCEDURE DATE: 08/23/2017 PREOPERATIVE DIAGNOSES: 1. Acute cholecystitis and cholelithiasis. 2. Severe leukocytosis of 25,000 white count. 3. Severe abdominal pain. POSTOPERATIVE DIAGNOSES: 1. Acute phlegmonous cholecystitis. 2. Perihepatic and pericholecystic abscess. 3. Extensive post infectious adhesions due to phlegmonous changes. 4. Hydrops of the gallbladder. PROCEDURES: 1. Laparoscopic cholecystectomy. 2. Laparoscopic drainage of perihepatic and pericholecystic abscess. 3. Laparoscopic extensive lysis of adhesions. 4. Laparoscopic drainage of hydrops of the gallbladder. SURGEON: Quentin Baron MD. CARD PUNCHING MACHINE OPERATOR: Richy PGY1 resident. TYPE OF ANESTHESIA: General endotracheal tube anesthesia. ESTIMATED BLOOD LOSS: Around 50 mL. DRAINS: A 19-[place] Ashish drain was placed. COMPLICATIONS: None. INTRAOPERATIVE FINDINGS: The patient had [id number] phlegmonous cholecystitis with a large stone blocking the gallbladder and with hydrops of the gallbladder and the patient also had perihepatic abscess as well as pericholecystic abscess and the patient had extensive post infectious adhesions and it took approximately 60 to 80 minutes extra for the routine procedure. DESCRIPTION OF PROCEDURE: On intraoperative steps, this 72-year-old female was diagnosed with acute cholecystitis with severe leukocytosis and severe abdominal pain and the patient was consented for laparoscopic cholecystectomy possible open. The patient was brought to the OR, placed supine on the operating table. After induction of the anesthesia, the abdomen was prepped and draped in usual sterile fashion. The supraumbilical transverse incision was made. After incising the skin and subcutaneous tissue, a Ruth port was placed and Pneumo was created. The 12-mm port was placed in the midline below costal margin. Another two 5 mm ports were placed in the midclavicular and anterior axillary line after the grasper and dissector was introduced and the gallbladder was identified in the large phlegmonous mass and there was a perihepatic pus as well as pericholecystic pus and abscess was present, so first abscess cavity was drained. Suction irrigation was done. Now the phlegmonous mass was dissected. The gallbladder was dissected free from the phlegmonous mass and blunt and sharp dissection was done. The gallbladder was aspirated and there was a clear fluid identified due to the hydrops of the gallbladder and fluid was sent to the table for the pathology. The pus was also sent for the culture and sensitivity and now the gallbladder was retracted cranially. The dissection of the gallbladder from the duodenum and extensive lysis of adhesion was done to identify the infundibulum and the Calot's triangle. The cystic duct and cystic artery were identified and clipped at 3 places and cut in between 2 clips near by gallbladder. The gallbladder was dissected free from the gallbladder fossa, taken in EndoCatch bag, taken out through the umbilical port site and sent to the table for the pathology. There was proper hemostasis in each and every part of the procedure. The suction irrigation of the gallbladder fossa as well as perihepatic area was done and a 19-[place]izen [place] Ashish drain was placed and the gallbladder was taken in EndoCatch bag, taken out through the umbilical port site and sent to the table for the pathology. There was a proper hemostasis in each and every part of the procedure. The umbilical incision was closed in two layers, the fascia with 0 Vicryl interrupted sutures multiple and skin with 4-0 Monocryl and dry sterile dressing was applied. The patient tolerated the procedure well. Count of the instrument and gauze was correct. There were no apparent complications. The patient was extubated in the OR and sent to the post-anesthesia care unit in stable condition. Quentin Baron MD MTDEstelle
[2017-08-24] MEDS: Lactated Ringer's 1,000 ML IV SCH (06:20)
[2017-08-24] MEDS: (Novolog) Insulin Aspart, Recombinant 100 u/ml 10 ml vial SC SCH ×4 (07:43→21:45)
--- NOTE | 2017-08-24 08:28 | CP.PCM.PN ---
<Richy Holder - Last Filed: 08/24/17 08:26> Subjective - Date & Time of Evaluation Date of Evaluation: 08/24/17 Time of Evaluation: 07:00 - Subjective Subjective: General Surgery Note for Dr. Baron Patient seen and examined at bedside. Patient states she had two episodes of nausea/vomiting overnight. She is complaining of abdominal pain at incision sites. Patient is tolerating some liquids. Patient denies flatus or BM. Denies fever/chills, chest pain, SOB, palpitations, diarrhea. Objective - Vital Signs/Intake and Output Vital Signs (last 24 hours): Temp Pulse Resp BP Pulse Ox 98.6 F 74 20 127/68 95 08/24/17 08:21 08/24/17 08:21 08/24/17 08:21 08/24/17 08:21 08/24/17 08:21 Intake and Output: 08/24/17 08/24/17 06:59 18:59 Intake Total 1895 Output Total 370 Balance 1525 - Medications Medications: Current Medications Hydromorphone HCl (Dilaudid) 0.5 mg IVP Q4H PRN PRN Reason: Pain, severe (8-10) Last Admin: 08/24/17 02:54 Dose: 0.5 mg Piperacillin Sod/Tazobactam Sod (Zosyn 3.375 Gm Iv Premix) 3.375 gm in 50 mls @ 100 mls/hr IVPB Q6 [facility] Last Admin: 08/24/17 05:05 Dose: 100 mls/hr Lactated Ringer's (Lactated Ringer's) 1,000 mls @ 125 mls/hr IV .Q8H [facility] Last Admin: 08/24/17 06:20 Dose: Not Given Insulin Aspart (Novolog) 0 unit SC ACHS [facility] PRN Reason: Protocol Last Admin: 08/24/17 07:43 Dose: Not Given Ondansetron HCl (Zofran Inj) 4 mg IVP Q4 PRN PRN Reason: Nausea/Vomiting Last Admin: 08/24/17 02:59 Dose: 4 mg Oxycodone/Acetaminophen (Percocet 5/325 Mg Tab) 1 tab PO Q4H PRN PRN Reason: Pain, moderate (4-7) Stop: 08/26/17 14:23 Pantoprazole Sodium (Protonix Inj) 40 mg IVP DAILY [facility] Last Admin: 08/23/17 10:03 Dose: 40 mg Pneumococcal Polyvalent Vaccine (Pneumovax 23 Vaccine) 0.5 ml IM .ONCE ONE Stop: 08/25/17 10:01 - Labs Labs: 08/23/17 07:38 08/23/17 07:38 PT 11.8 SECONDS (9.7-12.2) 08/22/17 14:53 INR 1.1 08/22/17 14:53 APTT 27 SECONDS (21-34) 08/22/17 14:53 - Constitutional Appears: No Acute Distress - Head Exam Head Exam: ATRAUMATIC, NORMOCEPHALIC - Eye Exam Eye Exam: Normal appearance - ENT Exam ENT Exam: Mucous Membranes Moist - Respiratory Exam Respiratory Exam: NORMAL BREATHING PATTERN - Cardiovascular Exam Cardiovascular Exam: REGULAR RHYTHM - GI/Abdominal Exam GI & Abdominal Exam: Soft, Tenderness (incision sites and RUQ), Normal Bowel Sounds. absent: Distended, Firm, Guarding, Rigid, Rebound Additional comments: incision site dressing clean dry and intact - Extremities Exam Extremities Exam: Normal Capillary Refill - Neurological Exam Neurological Exam: Alert, Awake, Oriented x3 - Psychiatric Exam Psychiatric exam: Normal Affect, Normal Mood - Skin Skin Exam: Dry, Intact, Normal Color, Warm Assessment and Plan - Assessment and Plan (Free Text) Plan: 72 F s/p laparoscopic cholecystectomy, gallbladder aspiration, perihepatic abscess drainage, and extensive JOCE POD#1 -CLD, ADAT -Change LR to D51/2NS with 20 KCL -Analgesic/Anti-emetics PRN -Encourage IS, OOB, and Ambulation -Will discuss with Dr. Tod Holder PGY1 <Quentin Baron - Last Filed: 08/27/17 18:36> Objective - Vital Signs/Intake and Output Vital Signs (last 24 hours): Temp Pulse Resp BP Pulse Ox 98.1 F 77 20 139/90 96 08/26/17 08:00 08/26/17 08:00 08/26/17 08:00 08/26/17 08:00 08/26/17 08:00 - Labs Labs: 08/26/17 07:30 08/26/17 07:30 PT 11.8 SECONDS (9.7-12.2) 08/22/17 14:53 INR 1.1 08/22/17 14:53 APTT 27 SECONDS (21-34) 08/22/17 14:53 Attending/Attestation - Attestation I have fully participated in the care of the patient.: Yes I have reviewed all pertinent clinical information, including history, physical exam and plan: Yes Notes (Text): Pt was seen and examined at bedside Agree with above note and assessment Pt is s/p Lap Katherine, Lap JOCE, Lap Drainage of abscesses Leucocytosis is improving Clear liquid diet continue with current mx Plan d.w pt in detail.
[2017-08-24] MEDS: Oxycodone/Acetaminophen 5/325 mg Tab PO PRN (09:30)
[2017-08-24] MEDS: Potassium Ch 20mEq in D5-1/2NS 1,000 ML IV SCH ×3 (09:40→21:46)
[2017-08-24 11:47] LABS: BASO % 0.1 % (0.0-2.0); EOS % 0.1 % (0.0-4.0); HEMATOCRIT 32.5 % (34.0-47.0); LYMPH # 1.4 K/uL (1.0-4.3); LYMPH % 9.5 % (20.0-40.0); MEAN CELL VOLUME 79.3 fL (81.0-99.0); MEAN CORPUSCULAR HEMOGLOBIN 26.5 pg (27.0-31.0); MEAN CORPUSCULAR HGB CONC 33.4 g/dL (33.0-37.0); MEAN PLATELET VOLUME 8.8 fL (7.2-11.7); MONO # 1.1 K/uL (0.0-0.8); MONO % 7.5 % (0.0-10.0); PLATELET COUNT 251 K/uL (130-400); RED CELL DISTRIBUTION WIDTH 13.2 % (11.5-14.5); WHITE BLOOD COUNT 15.2 K/uL (4.8-10.8)
[2017-08-24 12:15] LABS: CHLORIDE 97 mmol/L (98-107); SODIUM 129 mmol/L (132-148)
[2017-08-24 12:16] LABS: POTASSIUM 3.3 mmol/L (3.6-5.2)
[2017-08-24 12:18] LABS: ALB/GLOB RATIO 1.3 (1.0-2.1); ALKALINE PHOSPHATASE 87 U/L (38-126); ALT/SGPT 155 U/L (9-52); AST/SGOT 145 U/L (14-36); BILIRUBIN,TOTAL 0.9 mg/dL (0.2-1.3); BLOOD UREA NITROGEN 16 mg/dL (7-17); CARBON DIOXIDE 24 mmol/L (22-30); GFR AFRICAN-AMERICAN > 60; GLUCOSE,RANDOM 137 mg/dL (65-105); TOTAL PROTEIN 6.3 g/dL (6.3-8.3)
[2017-08-24 12:19] LABS: CALCIUM 7.8 mg/dl (8.6-10.4)
[2017-08-24 12:21] LABS: NEUTROPHIL 81 % (50-75); TOTAL CELLS COUNTED 100
[2017-08-24 12:22] LABS: PLATELET CLUMPS PRESENT
--- NOTE | 2017-08-24 13:48 | CP.PCM.PN ---
Subjective - Date & Time of Evaluation Date of Evaluation: 08/24/17 Time of Evaluation: 08:20 - Subjective Subjective: clinically same Objective - Vital Signs/Intake and Output Vital Signs (last 24 hours): Temp Pulse Resp BP Pulse Ox 98.6 F 74 20 127/68 95 08/24/17 08:21 08/24/17 08:21 08/24/17 08:21 08/24/17 08:21 08/24/17 08:21 Intake and Output: 08/24/17 08/24/17 06:59 18:59 Intake Total 1895 Output Total 370 Balance 1525 - Medications Medications: Current Medications Hydromorphone HCl (Dilaudid) 0.5 mg IVP Q4H PRN PRN Reason: Pain, severe (8-10) Last Admin: 08/24/17 02:54 Dose: 0.5 mg Piperacillin Sod/Tazobactam Sod (Zosyn 3.375 Gm Iv Premix) 3.375 gm in 50 mls @ 100 mls/hr IVPB Q6 [facility] Last Admin: 08/24/17 13:28 Dose: 100 mls/hr Potassium Chloride/Dextrose/Sod Cl (Potassium Chl 20 Meq In D5-1/2ns) 1,000 mls @ 125 mls/hr IV .Q8H [facility] Last Admin: 08/24/17 09:40 Dose: 125 mls/hr Insulin Aspart (Novolog) 0 unit SC ACHS [facility] PRN Reason: Protocol Last Admin: 08/24/17 13:26 Dose: Not Given Ondansetron HCl (Zofran Inj) 4 mg IVP Q4 PRN PRN Reason: Nausea/Vomiting Last Admin: 08/24/17 02:59 Dose: 4 mg Oxycodone/Acetaminophen (Percocet 5/325 Mg Tab) 1 tab PO Q4H PRN PRN Reason: Pain, moderate (4-7) Stop: 08/26/17 14:23 Last Admin: 08/24/17 09:30 Dose: 1 tab Pantoprazole Sodium (Protonix Inj) 40 mg IVP DAILY [facility] Last Admin: 08/24/17 09:15 Dose: 40 mg Pneumococcal Polyvalent Vaccine (Pneumovax 23 Vaccine) 0.5 ml IM .ONCE ONE Stop: 08/25/17 10:01 - Labs Labs: 08/24/17 11:29 08/24/17 11:29 PT 11.8 SECONDS (9.7-12.2) 08/22/17 14:53 INR 1.1 08/22/17 14:53 APTT 27 SECONDS (21-34) 08/22/17 14:53 - Constitutional Appears: Well - Head Exam Head Exam: ATRAUMATIC, NORMAL INSPECTION, NORMOCEPHALIC - Eye Exam Eye Exam: EOMI, Normal appearance, PERRL Pupil Exam: NORMAL ACCOMODATION, PERRL - ENT Exam ENT Exam: Mucous Membranes Moist, Normal Exam - Neck Exam Neck Exam: Full ROM, Normal Inspection. absent: Lymphadenopathy - Respiratory Exam Respiratory Exam: Decreased Breath Sounds - Cardiovascular Exam Cardiovascular Exam: REGULAR RHYTHM, +S1, +S2 - GI/Abdominal Exam GI & Abdominal Exam: Soft, Diminished Bowel Sounds - Rectal Exam Rectal Exam: Deferred Assessment and Plan (1) Cholecystitis Status: Acute (2) Leukocytosis Status: Acute (3) Wrist fracture Status: Acute - Assessment and Plan (Free Text) Plan: Patient examined. 2 episodes of vomiting overnight. Abdominal pain at incision sites. Continue piperacillin tazobactam. Continue insulin. Continue pain medications. Continue supportive care.
[2017-08-25] MEDS: Piperacill/Tazo 3.375gm in Dex 3.375 GM/50 ML BAG IVPB SCH ×4 (00:03→17:30)
[2017-08-25] MEDS: Oxycodone/Acetaminophen 5/325 mg Tab PO PRN (00:37)
[2017-08-25] MEDS: Potassium Ch 20mEq in D5-1/2NS 1,000 ML IV SCH ×3 (01:45→09:36)
[2017-08-25 07:29] LABS: BASO % 0.2 % (0.0-2.0); EOS % 0.4 % (0.0-4.0); HEMATOCRIT 33.1 % (34.0-47.0); LYMPH # 1.8 K/uL (1.0-4.3); LYMPH % 17.9 % (20.0-40.0); MEAN CELL VOLUME 80.5 fL (81.0-99.0); MEAN CORPUSCULAR HEMOGLOBIN 26.3 pg (27.0-31.0); MEAN CORPUSCULAR HGB CONC 32.6 g/dL (33.0-37.0); MEAN PLATELET VOLUME 8.7 fL (7.2-11.7); MONO % 9.9 % (0.0-10.0); WHITE BLOOD COUNT 10.2 K/uL (4.8-10.8)
[2017-08-25 07:41] LABS: CHLORIDE 102 mmol/L (98-107); SODIUM 133 mmol/L (132-148)
[2017-08-25 07:42] LABS: POTASSIUM 3.7 mmol/L (3.6-5.2)
[2017-08-25 07:44] LABS: ALB/GLOB RATIO 1.2 (1.0-2.1); ALKALINE PHOSPHATASE 65 U/L (38-126); AST/SGOT 116 U/L (14-36); BILIRUBIN,TOTAL 0.9 mg/dL (0.2-1.3); BLOOD UREA NITROGEN 6 mg/dL (7-17); CARBON DIOXIDE 26 mmol/L (22-30); GFR AFRICAN-AMERICAN > 60; TOTAL PROTEIN 5.7 g/dL (6.3-8.3)
[2017-08-25 07:45] LABS: ALT/SGPT 167 U/L (9-52); CALCIUM 7.7 mg/dl (8.6-10.4); GLUCOSE,RANDOM 140 mg/dL (65-105)
[2017-08-25] MEDS: (Novolog) Insulin Aspart, Recombinant 100 u/ml 10 ml vial SC SCH ×4 (08:06→21:42)
[2017-08-25] MEDS ORDERED: Pneumococcal 23-Valent Vaccine IM ONE (10:00)
[2017-08-25] MEDS ORDERED: Influenza Vaccine 60 mcg/0.5 mL SYR (4YR UP) IM ONE (10:00)
--- NOTE | 2017-08-25 10:19 | CP.PCM.PN ---
<Cheryle Martinez - Last Filed: 08/25/17 10:16> Subjective - Date & Time of Evaluation Date of Evaluation: 08/25/17 Time of Evaluation: 09:05 - Subjective Subjective: PGY3 Medicine Note - Dr. Chris Bennett's service: Patient seen and examined at bedside this AM. Patient reports slight abdominal discomfort and needing to go to the bathroom. Patient has been passing gas but has not had a bowel movement yet. Patient denies fever, chills, chest pain, SOB , leg pain. Objective - Vital Signs/Intake and Output Vital Signs (last 24 hours): Temp Pulse Resp BP Pulse Ox 98.3 F 72 20 138/78 96 08/25/17 07:44 08/25/17 07:44 08/25/17 07:44 08/25/17 07:44 08/25/17 07:44 Intake and Output: 08/25/17 08/25/17 06:59 18:59 Intake Total 1300 1325 Output Total 35 40 Balance 1265 1285 - Medications Medications: Current Medications Hydromorphone HCl (Dilaudid) 0.5 mg IVP Q4H PRN PRN Reason: Pain, severe (8-10) Last Admin: 08/24/17 02:54 Dose: 0.5 mg Piperacillin Sod/Tazobactam Sod (Zosyn 3.375 Gm Iv Premix) 3.375 gm in 50 mls @ 100 mls/hr IVPB Q6 [facility] Last Admin: 08/25/17 05:11 Dose: 100 mls/hr Potassium Chloride/Dextrose/Sod Cl (Potassium Chl 20 Meq In D5-1/2ns) 1,000 mls @ 125 mls/hr IV .Q8H [facility] Last Admin: 08/25/17 09:36 Dose: Not Given Insulin Aspart (Novolog) 0 unit SC ACHS [facility] PRN Reason: Protocol Last Admin: 08/25/17 08:06 Dose: 1 unit Ondansetron HCl (Zofran Inj) 4 mg IVP Q4 PRN PRN Reason: Nausea/Vomiting Last Admin: 08/24/17 02:59 Dose: 4 mg Oxycodone/Acetaminophen (Percocet 5/325 Mg Tab) 1 tab PO Q4H PRN PRN Reason: Pain, moderate (4-7) Stop: 08/26/17 14:23 Last Admin: 08/25/17 00:37 Dose: 1 tab Pantoprazole Sodium (Protonix Inj) 40 mg IVP DAILY [facility] Last Admin: 08/25/17 09:36 Dose: 40 mg - Labs Labs: 08/25/17 07:02 08/25/17 07:02 PT 11.8 SECONDS (9.7-12.2) 08/22/17 14:53 INR 1.1 08/22/17 14:53 APTT 27 SECONDS (21-34) 08/22/17 14:53 - Constitutional Appears: Non-toxic, No Acute Distress - Head Exam Head Exam: NORMAL INSPECTION - Eye Exam Eye Exam: EOMI - ENT Exam ENT Exam: Mucous Membranes Moist - Respiratory Exam Respiratory Exam: Clear to Ausculation Bilateral, NORMAL BREATHING PATTERN. absent: Rales, Rhonchi, Wheezes - Cardiovascular Exam Cardiovascular Exam: REGULAR RHYTHM, +S1, +S2. absent: Gallop, Rubs, Murmur - GI/Abdominal Exam GI & Abdominal Exam: Soft, Tenderness (at surgical sites), Normal Bowel Sounds Additional comments: clean and dry bandages over incision sites drain in place - Extremities Exam Extremities Exam: absent: Calf Tenderness, Pedal Edema - Neurological Exam Neurological Exam: Alert, Awake, Oriented x3 - Psychiatric Exam Psychiatric exam: Normal Affect, Normal Mood - Skin Skin Exam: Normal Color, Warm Assessment and Plan - Assessment and Plan (Free Text) Assessment: Cholecystitis s/p cholecystecomy POD #[address] Baron - help appreciated Dilaudid 0.5mg IVP Q4H PRN severe pain Zofran 4mg IVP Q4H PRN vomiting Percocet 1 tab PO Q4H PRN moderate pain Zosyn 3.375gm IVPB Q6H [facility] DM type II RISS Monitor accuchecks Prophylaxis Protonix 40mg IVP daily Will start anticoagulation when surgery says it is okay All medical management per Dr. Chris Bennett <Tomas Bennett - Last Filed: 08/28/17 16:39> Objective - Vital Signs/Intake and Output Vital Signs (last 24 hours): Temp Pulse Resp BP Pulse Ox 98.1 F 77 20 139/90 96 08/26/17 08:00 08/26/17 08:00 08/26/17 08:00 08/26/17 08:00 08/26/17 08:00 - Labs Labs: 08/26/17 07:30 08/26/17 07:30 PT 11.8 SECONDS (9.7-12.2) 08/22/17 14:53 INR 1.1 08/22/17 14:53 APTT 27 SECONDS (21-34) 08/22/17 14:53 Attending/Attestation - Attestation I have personally seen and examined this patient.: Yes I have fully participated in the care of the patient.: Yes I have reviewed all pertinent clinical information, including history, physical exam and plan: Yes Notes (Text): Patient examined. Patient reports abdominal discomfort (mild). No bowel movements. Continue pain medications, insulin, piperacillin tazobactum. Continue supportive care.
--- NOTE | 2017-08-25 16:07 | CP.PCM.PN ---
<Richy Holder - Last Filed: 08/25/17 16:05> Subjective - Date & Time of Evaluation Date of Evaluation: 08/25/17 Time of Evaluation: 07:20 - Subjective Subjective: General Surgery Note for Dr. Baron Patient seen and examined at bedside. No acute event overnight. Patient resting in bed comfortably. She states abdominal is improved and states she is feeling much better. Patient is tolerating her liquid diet. Patient denies flatus or BM. Denies fever/chills, chest pain, SOB, palpitations, diarrhea. Objective - Vital Signs/Intake and Output Vital Signs (last 24 hours): Temp Pulse Resp BP Pulse Ox 98.3 F 72 20 138/78 96 08/25/17 07:44 08/25/17 07:44 08/25/17 07:44 08/25/17 07:44 08/25/17 07:44 Intake and Output: 08/25/17 08/25/17 06:59 18:59 Intake Total 1300 2110 Output Total 35 70 Balance 1265 2040 - Medications Medications: Current Medications Hydromorphone HCl (Dilaudid) 0.5 mg IVP Q4H PRN PRN Reason: Pain, severe (8-10) Last Admin: 08/24/17 02:54 Dose: 0.5 mg Piperacillin Sod/Tazobactam Sod (Zosyn 3.375 Gm Iv Premix) 3.375 gm in 50 mls @ 100 mls/hr IVPB Q6 [facility] Last Admin: 08/25/17 12:09 Dose: 100 mls/hr Insulin Aspart (Novolog) 0 unit SC ACHS [facility] PRN Reason: Protocol Last Admin: 08/25/17 12:10 Dose: 1 unit Ondansetron HCl (Zofran Inj) 4 mg IVP Q4 PRN PRN Reason: Nausea/Vomiting Last Admin: 08/24/17 02:59 Dose: 4 mg Oxycodone/Acetaminophen (Percocet 5/325 Mg Tab) 1 tab PO Q4H PRN PRN Reason: Pain, moderate (4-7) Stop: 08/26/17 14:23 Last Admin: 08/25/17 00:37 Dose: 1 tab Pantoprazole Sodium (Protonix Inj) 40 mg IVP DAILY [facility] Last Admin: 08/25/17 09:36 Dose: 40 mg - Labs Labs: 08/25/17 07:02 08/25/17 07:02 PT 11.8 SECONDS (9.7-12.2) 08/22/17 14:53 INR 1.1 08/22/17 14:53 APTT 27 SECONDS (21-34) 08/22/17 14:53 - Constitutional Appears: Well, No Acute Distress - Head Exam Head Exam: ATRAUMATIC, NORMOCEPHALIC - Eye Exam Eye Exam: Normal appearance - ENT Exam ENT Exam: Mucous Membranes Moist - Neck Exam Neck Exam: Full ROM - Respiratory Exam Respiratory Exam: NORMAL BREATHING PATTERN - Cardiovascular Exam Cardiovascular Exam: REGULAR RHYTHM - GI/Abdominal Exam GI & Abdominal Exam: Soft, Normal Bowel Sounds. absent: Distended, Firm, Guarding, Tenderness, Rebound Additional comments: incision site dressings clean dry and intact - Back Exam Back Exam: absent: CVA tenderness (L), CVA tenderness (R) - Neurological Exam Neurological Exam: Alert, Awake, Oriented x3 - Psychiatric Exam Psychiatric exam: Normal Affect, Normal Mood - Skin Skin Exam: Dry, Intact, Normal Color, Warm Assessment and Plan - Assessment and Plan (Free Text) Plan: 72 F s/p laparoscopic cholecystectomy, gallbladder aspiration, perihepatic abscess drainage, and extensive JOCE POD#2 -Soft diet, ADAT -Discontinue fluids -Suppository -Analgesic/Anti-emetics PRN -Encourage IS, OOB, and Ambulation -Will discuss with Dr. Tod Holder PGY1 <Quentin Baron - Last Filed: 08/27/17 19:12> Objective - Vital Signs/Intake and Output Vital Signs (last 24 hours): Temp Pulse Resp BP Pulse Ox 98.1 F 77 20 139/90 96 08/26/17 08:00 08/26/17 08:00 08/26/17 08:00 08/26/17 08:00 08/26/17 08:00 - Labs Labs: 08/26/17 07:30 08/26/17 07:30 PT 11.8 SECONDS (9.7-12.2) 08/22/17 14:53 INR 1.1 08/22/17 14:53 APTT 27 SECONDS (21-34) 08/22/17 14:53 Attending/Attestation - Attestation I have personally seen and examined this patient.: Yes I have fully participated in the care of the patient.: Yes I have reviewed all pertinent clinical information, including history, physical exam and plan: Yes Notes (Text): Pt was seen and examined at bedside Agree with above note and assessment Reg low fat diet C.w IV antibiotics DC plan
--- NOTE | 2017-08-25 19:06 | CP.PCM.PN ---
Subjective - Date & Time of Evaluation Date of Evaluation: 08/25/17 Time of Evaluation: 07:40 - Subjective Subjective: clinically same Objective - Vital Signs/Intake and Output Vital Signs (last 24 hours): Temp Pulse Resp BP Pulse Ox 98.8 F 70 20 152/70 H 97 08/25/17 15:00 08/25/17 15:00 08/25/17 15:00 08/25/17 15:00 08/25/17 15:00 Intake and Output: 08/25/17 08/26/17 18:59 06:59 Intake Total 2110 Output Total 70 Balance 2039 - Medications Medications: Current Medications Hydromorphone HCl (Dilaudid) 0.5 mg IVP Q4H PRN PRN Reason: Pain, severe (8-10) Last Admin: 08/24/17 02:54 Dose: 0.5 mg Piperacillin Sod/Tazobactam Sod (Zosyn 3.375 Gm Iv Premix) 3.375 gm in 50 mls @ 100 mls/hr IVPB Q6 [facility] Last Admin: 08/25/17 17:30 Dose: 100 mls/hr Insulin Aspart (Novolog) 0 unit SC ACHS [facility] PRN Reason: Protocol Last Admin: 08/25/17 17:30 Dose: Not Given Ondansetron HCl (Zofran Inj) 4 mg IVP Q4 PRN PRN Reason: Nausea/Vomiting Last Admin: 08/24/17 02:59 Dose: 4 mg Oxycodone/Acetaminophen (Percocet 5/325 Mg Tab) 1 tab PO Q4H PRN PRN Reason: Pain, moderate (4-7) Stop: 08/26/17 14:23 Last Admin: 08/25/17 00:37 Dose: 1 tab Pantoprazole Sodium (Protonix Inj) 40 mg IVP DAILY [facility] Last Admin: 08/25/17 09:36 Dose: 40 mg - Labs Labs: 08/25/17 07:02 08/25/17 07:02 PT 11.8 SECONDS (9.7-12.2) 08/22/17 14:53 INR 1.1 08/22/17 14:53 APTT 27 SECONDS (21-34) 08/22/17 14:53 - Constitutional Appears: Well - Head Exam Head Exam: ATRAUMATIC, NORMAL INSPECTION, NORMOCEPHALIC - Eye Exam Eye Exam: EOMI, Normal appearance, PERRL Pupil Exam: NORMAL ACCOMODATION, PERRL - ENT Exam ENT Exam: Mucous Membranes Moist, Normal Exam - Neck Exam Neck Exam: Full ROM, Normal Inspection. absent: Lymphadenopathy - Respiratory Exam Respiratory Exam: Decreased Breath Sounds - Cardiovascular Exam Cardiovascular Exam: REGULAR RHYTHM, +S1, +S2 - GI/Abdominal Exam GI & Abdominal Exam: Soft, Diminished Bowel Sounds - Rectal Exam Rectal Exam: Deferred Assessment and Plan (1) Cholecystitis Status: Acute (2) Leukocytosis Status: Acute (3) Wrist fracture Status: Acute - Assessment and Plan (Free Text) Plan: Patient examined. Patient better. No acute overnight events. Continue piperacillin tazobactam. Continue pain medications. Continue supportive care.
[2017-08-26] MEDS: Piperacill/Tazo 3.375gm in Dex 3.375 GM/50 ML BAG IVPB SCH ×3 (00:13→12:25)
[2017-08-26 07:55] LABS: BASO % 0.4 % (0.0-2.0); EOS # 0.2 K/uL (0.0-0.7); EOS % 1.9 % (0.0-4.0); HEMATOCRIT 35.1 % (34.0-47.0); LYMPH # 1.7 K/uL (1.0-4.3); LYMPH % 19.1 % (20.0-40.0); MEAN CELL VOLUME 80.3 fL (81.0-99.0); MEAN CORPUSCULAR HEMOGLOBIN 26.8 pg (27.0-31.0); MEAN CORPUSCULAR HGB CONC 33.4 g/dL (33.0-37.0); MEAN PLATELET VOLUME 8.3 fL (7.2-11.7); MONO # 0.8 K/uL (0.0-0.8); MONO % 8.8 % (0.0-10.0); RED CELL DISTRIBUTION WIDTH 13.1 % (11.5-14.5); WHITE BLOOD COUNT 9.1 K/uL (4.8-10.8)
[2017-08-26 08:01] LABS: CHLORIDE 102 mmol/L (98-107)
[2017-08-26 08:02] LABS: POTASSIUM 3.4 mmol/L (3.6-5.2); SODIUM 135 mmol/L (132-148)
[2017-08-26 08:04] LABS: ALB/GLOB RATIO 1.2 (1.0-2.1); AST/SGOT 63 U/L (14-36); BILIRUBIN,TOTAL 0.9 mg/dL (0.2-1.3); CARBON DIOXIDE 24 mmol/L (22-30); GFR AFRICAN-AMERICAN > 60; TOTAL PROTEIN 6.3 g/dL (6.3-8.3)
[2017-08-26 08:05] LABS: ALKALINE PHOSPHATASE 82 U/L (38-126); ALT/SGPT 143 U/L (9-52); BLOOD UREA NITROGEN 10 mg/dL (7-17); CALCIUM 8.2 mg/dl (8.6-10.4); GLUCOSE,RANDOM 116 mg/dL (65-105)
[2017-08-26] MEDS: (Novolog) Insulin Aspart, Recombinant 100 u/ml 10 ml vial SC SCH ×2 (08:30→12:25)
[2017-08-26 08:54] VITALS: BP 139/90; PULSE 77; TEMP 98.1; O2SAT 96
--- NOTE | 2017-08-26 09:41 | CP.PCM.PN ---
<Vladimir Peters - Last Filed: 08/26/17 09:37> Subjective - Date & Time of Evaluation Date of Evaluation: 08/26/17 Time of Evaluation: 09:38 - Subjective Subjective: Surgery: Dr. Baron 72F seen and examined at bedside, resting comfortably. Patient states she still has slight discomfort in RUQ but has improved. Patient is tolerating her soft diet; patient denies nausea or vomiting. Patient stated she had 1BM yesterday afternoon. Patient denies chest pain, SOB, fever, or chills. Objective - Vital Signs/Intake and Output Vital Signs (last 24 hours): Temp Pulse Resp BP Pulse Ox 98.1 F 77 20 139/90 96 08/26/17 08:00 08/26/17 08:00 08/26/17 08:00 08/26/17 08:00 08/26/17 08:00 Intake and Output: 08/26/17 08/26/17 06:59 18:59 Intake Total 250 Output Total 20 20 Balance 230 -20 - Medications Medications: Current Medications Hydromorphone HCl (Dilaudid) 0.5 mg IVP Q4H PRN PRN Reason: Pain, severe (8-10) Last Admin: 08/24/17 02:54 Dose: 0.5 mg Piperacillin Sod/Tazobactam Sod (Zosyn 3.375 Gm Iv Premix) 3.375 gm in 50 mls @ 100 mls/hr IVPB Q6 [facility] Last Admin: 08/26/17 05:18 Dose: 100 mls/hr Insulin Aspart (Novolog) 0 unit SC ACHS [facility] PRN Reason: Protocol Last Admin: 08/26/17 08:30 Dose: 1 unit Ondansetron HCl (Zofran Inj) 4 mg IVP Q4 PRN PRN Reason: Nausea/Vomiting Last Admin: 08/24/17 02:59 Dose: 4 mg Oxycodone/Acetaminophen (Percocet 5/325 Mg Tab) 1 tab PO Q4H PRN PRN Reason: Pain, moderate (4-7) Stop: 08/26/17 14:23 Last Admin: 08/25/17 00:37 Dose: 1 tab Pantoprazole Sodium (Protonix Inj) 40 mg IVP DAILY [facility] Last Admin: 08/25/17 09:36 Dose: 40 mg Potassium Chloride (K-Dur 20 Meq Er Tab) 20 meq PO DAILY [facility] - Labs Labs: 08/26/17 07:30 08/26/17 07:30 PT 11.8 SECONDS (9.7-12.2) 08/22/17 14:53 INR 1.1 08/22/17 14:53 APTT 27 SECONDS (21-34) 08/22/17 14:53 - Constitutional Appears: Non-toxic, No Acute Distress - Head Exam Head Exam: ATRAUMATIC, NORMOCEPHALIC - Eye Exam Eye Exam: EOMI - ENT Exam ENT Exam: Mucous Membranes Moist - Neck Exam Neck Exam: Full ROM - Respiratory Exam Respiratory Exam: NORMAL BREATHING PATTERN. absent: Accessory Muscle Use, Respiratory Distress - GI/Abdominal Exam GI & Abdominal Exam: Soft. absent: Distended, Firm, Guarding, Rigid, Tenderness , Rebound Additional comments: Dressing in place, C/D/I, R side konstantin in place, serous output - Extremities Exam Extremities Exam: absent: Calf Tenderness, Pedal Edema - Neurological Exam Neurological Exam: Alert, Awake, Oriented x3 Assessment and Plan - Assessment and Plan (Free Text) Assessment: 72F w. cholecystitis, s/p lap tracy POD#3 -Upgraded to Regular Diet -Encouraged IS, OOB, and Ambulation -Patient is stable for d/c from surgical standpoint -Pt to go home w. drain -f/u w. Dr. Baron in 1-2 weeks -Activity and diet as tolerated -Return to ED if symptoms worsen -will discuss with Dr. Baron Zemaitis PGY3 <Quentin Baron B - Last Filed: 08/27/17 19:28> Objective - Vital Signs/Intake and Output Vital Signs (last 24 hours): Temp Pulse Resp BP Pulse Ox 98.1 F 77 20 139/90 96 08/26/17 08:00 08/26/17 08:00 08/26/17 08:00 08/26/17 08:00 08/26/17 08:00 - Labs Labs: 08/26/17 07:30 08/26/17 07:30 PT 11.8 SECONDS (9.7-12.2) 08/22/17 14:53 INR 1.1 08/22/17 14:53 APTT 27 SECONDS (21-34) 08/22/17 14:53 Attending/Attestation - Attestation I have fully participated in the care of the patient.: Yes I have reviewed all pertinent clinical information, including history, physical exam and plan: Yes Notes (Text): Pt is s/p Lap Cholecystectomy, JOCE and Drainage of abscess Reg diet DC home f.u as out pt for drain removal Po antibiotics Plan d.w pt in detail.
[2017-08-26] MEDS ORDERED: Potassium Chloride 20 mEq ER Tab PO SCH (10:00)
--- NOTE | 2017-08-26 11:49 | CP.PCM.PN ---
<Cheryle Martinez H - Last Filed: 08/26/17 11:47> Subjective - Date & Time of Evaluation Date of Evaluation: 08/26/17 Time of Evaluation: 10:30 - Subjective Subjective: PGY3 Medicine Note - Dr. Chris Bennett's service: Patient seen and examined at bedside this AM. Patient reports having a bowel movement yesterday. Patient is tolerating soft diet. Patient denies fever, chills, chest pain, SOB, leg pain. Objective - Vital Signs/Intake and Output Vital Signs (last 24 hours): Temp Pulse Resp BP Pulse Ox 98.1 F 77 20 139/90 96 08/26/17 08:00 08/26/17 08:00 08/26/17 08:00 08/26/17 08:00 08/26/17 08:00 Intake and Output: 08/26/17 08/26/17 06:59 18:59 Intake Total 250 Output Total 20 20 Balance 230 -20 - Medications Medications: Current Medications Hydromorphone HCl (Dilaudid) 0.5 mg IVP Q4H PRN PRN Reason: Pain, severe (8-10) Last Admin: 08/24/17 02:54 Dose: 0.5 mg Piperacillin Sod/Tazobactam Sod (Zosyn 3.375 Gm Iv Premix) 3.375 gm in 50 mls @ 100 mls/hr IVPB Q6 [facility] Last Admin: 08/26/17 05:18 Dose: 100 mls/hr Insulin Aspart (Novolog) 0 unit SC ACHS [facility] PRN Reason: Protocol Last Admin: 08/26/17 08:30 Dose: 1 unit Ondansetron HCl (Zofran Inj) 4 mg IVP Q4 PRN PRN Reason: Nausea/Vomiting Last Admin: 08/24/17 02:59 Dose: 4 mg Oxycodone/Acetaminophen (Percocet 5/325 Mg Tab) 1 tab PO Q4H PRN PRN Reason: Pain, moderate (4-7) Stop: 08/26/17 14:23 Last Admin: 08/25/17 00:37 Dose: 1 tab Pantoprazole Sodium (Protonix Inj) 40 mg IVP DAILY [facility] Last Admin: 08/26/17 09:50 Dose: 40 mg Potassium Chloride (K-Dur 20 Meq Er Tab) 20 meq PO DAILY [facility] Last Admin: 08/26/17 09:50 Dose: 20 meq - Labs Labs: 08/26/17 07:30 08/26/17 07:30 PT 11.8 SECONDS (9.7-12.2) 08/22/17 14:53 INR 1.1 08/22/17 14:53 APTT 27 SECONDS (21-34) 08/22/17 14:53 - Constitutional Appears: Non-toxic, No Acute Distress - Head Exam Head Exam: NORMAL INSPECTION - Eye Exam Eye Exam: EOMI - ENT Exam ENT Exam: Mucous Membranes Moist - Respiratory Exam Respiratory Exam: Clear to Ausculation Bilateral, NORMAL BREATHING PATTERN. absent: Rales, Rhonchi, Wheezes - Cardiovascular Exam Cardiovascular Exam: REGULAR RHYTHM, +S1, +S2. absent: Gallop, Rubs, Murmur - GI/Abdominal Exam GI & Abdominal Exam: Soft, Normal Bowel Sounds. absent: Tenderness Additional comments: dressing clean dry and intact + drain - Extremities Exam Extremities Exam: absent: Calf Tenderness, Pedal Edema - Neurological Exam Neurological Exam: Alert, Awake, Oriented x3 - Psychiatric Exam Psychiatric exam: Normal Affect, Normal Mood - Skin Skin Exam: Normal Color, Warm Assessment and Plan - Assessment and Plan (Free Text) Assessment: Cholecystitis s/p cholecystecomy POD #[address] Baron - help appreciated Dilaudid 0.5mg IVP Q4H PRN severe pain Zofran 4mg IVP Q4H PRN vomiting Percocet 1 tab PO Q4H PRN moderate pain Zosyn 3.375gm IVPB Q6H [facility] D/C with percocet #15 and Augmentin 875-125mg PO BID #10 DM type II RISS Monitor accuchecks Prophylaxis Protonix 40mg IVP daily All medical management per Dr. Chris Bennett <Tomas Bennett S - Last Filed: 08/26/17 14:20> Objective - Vital Signs/Intake and Output Vital Signs (last 24 hours): Temp Pulse Resp BP Pulse Ox 98.1 F 77 20 139/90 96 08/26/17 08:00 08/26/17 08:00 08/26/17 08:00 08/26/17 08:00 08/26/17 08:00 Intake and Output: 08/26/17 08/26/17 06:59 18:59 Intake Total 250 Output Total 20 20 Balance 230 -20 - Medications Medications: Current Medications Hydromorphone HCl (Dilaudid) 0.5 mg IVP Q4H PRN PRN Reason: Pain, severe (8-10) Last Admin: 08/24/17 02:54 Dose: 0.5 mg Piperacillin Sod/Tazobactam Sod (Zosyn 3.375 Gm Iv Premix) 3.375 gm in 50 mls @ 100 mls/hr IVPB Q6 [facility] Last Admin: 08/26/17 12:25 Dose: 100 mls/hr Insulin Aspart (Novolog) 0 unit SC ACHS [facility] PRN Reason: Protocol Last Admin: 08/26/17 12:25 Dose: 2 unit Ondansetron HCl (Zofran Inj) 4 mg IVP Q4 PRN PRN Reason: Nausea/Vomiting Last Admin: 08/24/17 02:59 Dose: 4 mg Oxycodone/Acetaminophen (Percocet 5/325 Mg Tab) 1 tab PO Q4H PRN PRN Reason: Pain, moderate (4-7) Stop: 08/26/17 14:23 Last Admin: 08/25/17 00:37 Dose: 1 tab Pantoprazole Sodium (Protonix Inj) 40 mg IVP DAILY [facility] Last Admin: 08/26/17 09:50 Dose: 40 mg Potassium Chloride (K-Dur 20 Meq Er Tab) 20 meq PO DAILY [facility] Last Admin: 08/26/17 09:50 Dose: 20 meq - Labs Labs: 08/26/17 07:30 08/26/17 07:30 PT 11.8 SECONDS (9.7-12.2) 08/22/17 14:53 INR 1.1 08/22/17 14:53 APTT 27 SECONDS (21-34) 08/22/17 14:53 Assessment and Plan (1) Cholecystitis Status: Acute (2) Leukocytosis Status: Acute (3) Wrist fracture Status: Acute Attending/Attestation - Attestation I have personally seen and examined this patient.: Yes I have fully participated in the care of the patient.: Yes I have reviewed all pertinent clinical information, including history, physical exam and plan: Yes Notes (Text): Patient examined. Bowel movement today morning. Patient tolerating oral feeds. Abdominal abscess drain culture negative. Gallbladder Gram stain negative. Wound culture no growth. Continue piperacillin and tazobactam. Continue pain medications. Continue supportive care.
--- NOTE | 2017-08-26 12:26 | CARD ---
APPROVED REPORT EKG Measurement Heart [id number] <Conclusion> Normal sinus rhythm Nonspecific T wave abnormality Abnormal ECG
== END 2017-08-26 17:30 | disposition home or self-care (01) | DRG 418 ==
LOC: C.ER 11:12 → C.9E 14:30 → C.3T 16:26
PROVIDERS: ADMIT Internal Medicine Nephrology; ATTEND Internal Medicine Nephrology
PROC: 0FN44ZZ Release Gallbladder, Percutaneous Endoscopic Approach (ICD-10-PCS; 2017-08-23)
PROC: 0F9440Z Drainage of Gallbladder with Drainage Device, Percutaneous Endoscopic Approach (ICD-10-PCS; 2017-08-23)
PROC: 0F9040Z Drainage of Liver with Drainage Device, Percutaneous Endoscopic Approach (ICD-10-PCS; 2017-08-23)
PROC: 0FT44ZZ Resection of Gallbladder, Percutaneous Endoscopic Approach (ICD-10-PCS; principal; 2017-08-23 11:00)
DX: K80.12 Calculus of gallbladder with acute and chronic cholecystitis without obstruction (principal); K82.1 Hydrops of gallbladder; E11.9 Type 2 diabetes mellitus without complications; K82.8 Other specified diseases of gallbladder; I10 Essential (primary) hypertension; E78.00 Pure hypercholesterolemia, unspecified; M81.0 Age-related osteoporosis without current pathological fracture; E66.9 Obesity, unspecified; Z68.32 Body mass index [BMI] 32.0-32.9, adult; Z79.4 Long term (current) use of insulin